=== PATIENT | male | born 1945 | race Caucasian/White ===

== ENCOUNTER 2017-01-21 14:42 | Emergency (ER) | payer MEDICARE ==
[2017-01-21] MEDS ORDERED: Sodium Chloride 0.9% 1000 ML 1,000 ML ONE (15:39)
[2017-01-21] MEDS ORDERED: Zofran 4 MG/2 ML VIAL IV ONE (15:41)
[2017-01-21 15:44] LABS: Mean Cell Volume 88.9 fl (78-100); Mean Corpuscular Hemoglobin 30.4 pg (26-32); Mean Platelet Volume 11.7 fl (6-9.5); Platelet Count 208 K/mm3 (150-450); Red Blood Count 4.67 M/mm3 (4.1-5.6); Red Cell Distribution Width 13.7 % (11.5-14.0); White Blood Count 6.5 K/mm3 (4.0-10.5)
[2017-01-21] MEDS ORDERED: Sodium Chloride 0.9% 1000 ML 1,000 ML IV SCH (15:45)
[2017-01-21] MEDS ORDERED: Zofran 4 MG/2 ML VIAL ONE (15:45)
[2017-01-21 16:07] LABS: ALBUMIN 3.3 g/dL (3.4-5.0); ANION GAP 16.7 MEQ/L (5-15); BILIRUBIN,TOTAL 0.4 mg/dL (0.2-1.0); Carbon Dioxide 23.6 mEq/L (21-32); Potassium 3.3 mEq/L (3.5-5.1); Total Protein 7.9 gm/dL (6.4-8.2)
--- NOTE | 2017-01-21 16:10 | ERPHSYRPT ---
- History of Present Illness Time Seen by Provider: 01/21/17 15:33 Historian: patient, family (significant other) Patient Subjective Stated Complaint: pt states he seen in [facility] care on 01/20/17 and given an outpatient order for a stool sample. pt states he is not getting better. states he has had vomiting and diarrhea for the past 3 days. denies any vomiting today. Triage Nursing Assessment: pt pink, warm, dry. pt ambularted into ER without difficulty. pt afebrile. abdomen obese. tender all over. Physician History: CC: abdominal pain Hx: 72 y/o patient of Dr aTyla Malagon in [place]. He began having vomiting and diarrhea without blood on Friday (3 days). He had no vomiting yesterday. Continues to have severe diarrhea 6 times today. Feels general weakness. Has not checked sugars. He is diabetic. No fever or chills. He had stools culture sent yesterday which is pending. He had negative C dff. Timing/Duration: day(s) (3) Allergies/Adverse Reactions: No Known Drug Allergies Allergy (Unverified 01/21/17 15:03) Home Medications: Amlodipine Besylate 5 mg PO DAILY 01/21/17 [History] Aspirin 81 mg PO DAILY 01/21/17 [History] Budesonide/Formoterol Fumarate [Symbicort 160-4.5 Mcg Inhaler] 10.2 gm IH DAILY 01/21/17 [History] Carvedilol 25 mg PO BID 01/21/17 [History] Colestipol HCl [Colestid] 2 gm PO DAILY 01/21/17 [History] Dapagliflozin Propanediol [Farxiga] 5 mg PO DAILY 01/21/17 [History] Docusate Sodium [Stool Softener] 200 mg PO BID 01/21/17 [History] Fenofibrate,Micronized [Fenofibrate] 200 mg PO DAILY 01/21/17 [History] Ferrous Sulfate 325 mg [Feosol 325 mg] 325 mg PO DAILY 01/21/17 [History] Finasteride 5 mg [Proscar 5 MG] 5 mg PO DAILY 01/21/17 [History] Folic Acid 1 mg PO DAILY 01/21/17 [History] Furosemide 40 mg [Lasix 40 MG] 40 mg PO DAILY 01/21/17 [History] Glucosamine/D3/Boswellia Meagan [Osteo Bi-Flex Tablet] 1 each PO DAILY 01/21/17 [ History] Insulin Glargine [Lantus Insulin] 40 unit SQ DAILY 01/21/17 [History] Insulin Glargine,Hum.rec.anlog [Toujeo Solostar] 300 unit SQ DAILY 01/21/17 [ History] Insulin Lispro [Humalog Kwikpen] 10 unit SQ BID 01/21/17 [History] Isosorbide Mononitrate 60 mg [Imdur 60MG] 60 mg PO DAILY 01/21/17 [History] Lactobacillus Acidophilus [Acidophilus Probiotic] 0.5 mg PO DAILY 01/21/17 [ History] Losartan Potassium 100 mg PO DAILY 01/21/17 [History] Magnesium 200 mg PO HS 01/21/17 [History] Meloxicam 15 mg [Meloxicam 15 MG] 15 mg PO DAILY 01/21/17 [History] [place]-3 Fatty Acids/Fish Oil [Fish Oil 1,000 mg Capsule] 1,000 mg PO BID [History] Omeprazole 40 mg PO DAILY 01/21/17 [History] Probenecid 500 mg PO BID 01/21/17 [History] Psyllium Husk/Aspartame [Metamucil] 425 gm PO DAILY 01/21/17 [History] Ranolazine [Ranexa] 1,000 mg PO BID 01/21/17 [History] Rosuvastatin Calcium [Crestor] 40 mg PO DAILY 01/21/17 [History] Saxagliptin HCl/Metformin HCl [Kombiglyze Xr 2.5-1,000 mg Tab] 2 each PO DAILY 01/21/17 [History] Tamsulosin HCl 0.4 mg [Flomax 0.4 MG] 0.4 mg PO DAILY 01/21/17 [History] Hx Tetanus, Diphtheria Vaccination/Date Given: Yes (up to date) Hx Influenza Vaccination/Date Given: Yes Hx Pneumococcal Vaccination/Date Given: Yes Immunizations Up to Date: Yes - Review of Systems Constitutional: Malaise, Weakness, No Fever, No Chills Eyes: No Symptoms Ears, Nose, & Throat: No Symptoms Respiratory: No Symptoms Cardiac: No Chest Pain Abdominal/Gastrointestinal: Abdominal Pain, Nausea, Vomiting, Diarrhea Genitourinary Symptoms: No Dysuria Musculoskeletal: No Back Pain Skin: No Rash Neurological: No Headache All Other Systems: Reviewed and Negative - Past Medical History Pertinent Past Medical History: Yes Cardiac History: High Cholesterol, Hypertension Endocrine Medical History: Diabetes Type II Musculoskeletal History: Arthritis - Past Surgical History Past Surgical History: Yes Gastrointestinal: Cholecystectomy, Hernia Repair Musculoskeletal: Joint Replacement, Orthopedic Surgery - Social History Smoking Status: Former smoker Exposure to second hand smoke: No Drug Use: none Patient Lives Alone: No - Nursing Vital Signs Nursing Vital Signs: Initial Vital Signs Temperature 97.8 F 01/21/17 15:05 Pulse Rate 76 01/21/17 15:05 Respiratory Rate 18 01/21/17 15:05 Blood Pressure 140/71 01/21/17 15:05 O2 Sat by Pulse Oximetry 98 01/21/17 15:05 - Physical Exam General Appearance: alert, obese Eye Exam: PERRL/EOMI Ears, Nose, Throat Exam: dry mucous membranes Neck Exam: normal inspection, supple Respiratory Exam: normal breath sounds Cardiovascular Exam: regular rate/rhythm Gastrointestinal/Abdomen Exam: soft, tenderness (diffuse tenderness), No mass Male Genitalia Exam: normal genitalia Back Exam: normal inspection Extremity Exam: normal range of motion, pedal edema Neurologic Exam: alert, oriented x 3, cooperative, sensation nml, No motor deficits Skin Exam: warm, dry, No rash SpO2 Interpretation: normal SpO2: 100 Oxygen Delivery: Room Air - Course Nursing assessment & vital signs reviewed: Yes - CT Exams bad/pelvis CT Interpretation: Tele-radiologist Report (mild diffuse pericolonic stranding favoring colitis. Some underlyine diverticulosis/itis. apendicolith without appendicitis.) Ordered Tests: Active Orders 24 hr Category Date Time Status Clean Catch Urine Specimen STAT Care 01/21/17 15:33 Active IV Insertion STAT Care 01/21/17 15:41 Active ABDOMEN AND PELVIS W/0 CONTRAS [CT] Stat Exams 01/21/17 15:41 Completed CBC W DIFF Stat Lab 01/21/17 15:39 Completed CMP Stat Lab 01/21/17 15:39 Completed Lactic Acid Stat Lab 01/21/17 15:41 Completed Manual Differential NC Stat Lab 01/21/17 15:39 Completed UA W/RFX UR CULTURE Stat Lab 01/21/17 15:33 Ordered Medication Summary Generic Name Dose Route Start Last Admin Trade Name Elisha PRN Reason Stop Dose Admin Sodium Chloride 1,000 mls @ 500 mls/hr 01/21/17 15:45 01/21/17 15:40 Sodium Chloride 0.9% 1000 Ml IV 02/20/17 15:44 500 mls/hr .Q2H SEGUNDO Administration Discontinued Medications Generic Name Dose Route Start Last Admin Trade Name Elisha PRN Reason Stop Dose Admin Ondansetron HCl 4 mg 01/21/17 15:41 01/21/17 15:45 Zofran 4 Mg/2 Ml Vial IV 01/21/17 15:42 4 mg STAT ONE Administration Ondansetron HCl Confirm 01/21/17 15:45 Zofran 4 Mg/2 Ml Vial Administered 01/21/17 15:46 Dose 4 mg .ROUTE .STDead Inventory Management System-MED ONE Lab/Rad Data: Laboratory Result Diagrams 01/21/17 15:39 01/21/17 15:39 Laboratory Results 01/21/17 01/21/17 01/21/17 Range/Units 15:41 15:39 15:39 WBC 6.5 (4.0-10.5) K/mm3 RBC 4.67 (4.1-5.6) M/mm3 Hgb 14.2 (12.5-18.0) gm/dl Hct 41.5 L (42-50) % MCV 88.9 (78-100) fl MCH 30.4 (26-32) pg MCHC 34.2 (32-36) g/dl RDW 13.7 (11.5-14.0) % Plt Count 208 (150-450) K/mm3 MPV 11.7 H (6-9.5) fl Sodium 134 L (136-145) mEq/L Potassium 3.3 L (3.5-5.1) mEq/L Chloride 97 L (98-107) mEq/L Carbon Dioxide 23.6 (21-32) mEq/L Anion Gap 16.7 H (5-15) MEQ/L BUN 29 H (9-20) mg/dL Creatinine 1.95 H (0.55-1.30) mg/dl Estimated GFR 36 ML/MIN Glucose 212 H (70-110) MG/DL Lactic Acid 1.6 (0.4-2.0) Calcium 9.3 (8.5-10.1) mg/dL Total Bilirubin 0.40 (0.2-1.0) mg/dL AST 32 (15-37) U/L ALT 23 (12-78) U/L Alkaline Phosphatase 45 L (46-116) U/L Serum Total Protein 7.9 (6.4-8.2) gm/dL Albumin 3.3 L (3.4-5.0) g/dL - Progress Progress Note: 01/21/17 16:51 Stool cx pending. Pt was given IVF. Offered admission for IVF and abtx but he chose to go home. Will release with bactrim, flagyl, and zofran ODT. Counseled pt/family regarding: lab results, diagnosis, need for follow-up, rad results - Departure Time of Disposition: 16:51 Departure Disposition: Home Clinical Impression: Diarrhea, Colitis, Diverticulitis Condition: Stable Critical Care Time: No Referrals: TAYLA MALAGON MD [Primary Care Provider] - Instructions: Diverticulitis, Diarrhea and Traveler's Diarrhea -- Adult Additional Instructions: Rx bactrim. Rx flagyl. Rx zofran ODT. Sip fluids, bland diet. Prescriptions: Ondansetron [Zofran Odt] 4 mg PO Q6HPRN PRN #10 tab.rapdis PRN Reason: Nausea/Vomiting Metronidazole 500 mg [Flagyl 500 MG] 500 mg PO BID #20 tablet Smz/Tmp Ds Tablet [Bactrim Ds Tablet] 1 udtab PO BID #20 tablet
--- NOTE | 2017-01-21 16:28 | XRAY ---
Indication: Lower abdominal pain. Vomiting and diarrhea. Multiple contiguous axial images obtained through the abdomen and pelvis without contrast as ordered. Comparison: None Lung bases demonstrates minimal fibrosis/scarring. No infiltrate, consolidation, or effusion. The heart is not enlarged. Noncontrasted stomach and bowel loops appear nonobstructed. There is mild diffuse or colonic stranding greatest in the descending and sigmoid colon favoring colitis. Mild scattered descending and sigmoid diverticulosis/diverticulitis. No free fluid/air. Tiny appendicolith without features for acute appendicitis. Nonobstructing punctate right renal calculus and 1 cm left upper pole exophytic cyst. Previous cholecystectomy. Remaining liver, pancreas, spleen, adrenal glands, kidneys, ureters, and bladder appear unremarkable for noncontrast exam. Moderate/heavy aortoiliac calcifications including great branches. Ectatic distal abdominal aorta measuring 2.8 cm in diameter. Osseous structures intact with moderate/advanced degenerative changes throughout the spine. Bilateral L5 spondylolysis without spondylolisthesis. Impression: 1. Mild diffuse pericolonic stranding favoring colitis. Great extent in the descending and sigmoid colon with underlying diverticulosis/diverticulitis. No free fluid or evidence for perforation. 2. Appendicolith without appendicitis. 3. Nonobstructing right renal micro-calculus, left renal cyst, and ectatic distal abdominal aorta. 4. Multilevel spinal degenerative spondylosis. Bilateral L5 spondylolysis without spondylolisthesis. CTDI 34.67
[2017-01-21 17:04] VITALS: O2SAT 94
[2017-01-21 17:34] VITALS: BP 138/59; PULSE 75
[2017-01-21 17:50] LABS: ATYPICAL LYMPHS 5 %; BAND 18 % (0.0-2.0); Platelet Estimate NORMAL (NORMAL); Total Cells Counted 100
== END 2017-01-21 17:32 | disposition home or self-care (01) ==
LOC: ED 14:42
DX: R19.7 Diarrhea, unspecified (principal); K52.9 Noninfective gastroenteritis and colitis, unspecified; K57.92 Diverticulitis of intestine, part unspecified, without perforation or abscess without bleeding; Z79.899 Other long term (current) drug therapy; Z79.4 Long term (current) use of insulin; R11.2 Nausea with vomiting, unspecified; R10.9 Unspecified abdominal pain
CPT/HCPCS: 36000; 36415; 74176; 80053; 83605; 85025; 87177; 87209; 96360; 96361; 96374; 99284; J2405

== ENCOUNTER 2017-07-29 15:42 | Emergency (ER) | payer MEDICARE ==
[2017-07-29 16:07] VITALS: O2SAT 96
[2017-07-29] MEDS ORDERED: Hydromorphone 1 mg/ml Ampule IV ONE (16:33)
--- NOTE | 2017-07-29 16:39 | ERPHSYRPT ---
- History of Present Illness Time Seen by Provider: 07/29/17 16:26 Source: patient Patient Subjective Stated Complaint: pt co pain to left hip area,after a fall 3 weeks ago after slipping on wet leafs. was seen a clinic and given a steriod shot with no relief Triage Nursing Assessment: pt walked in with cane. alert, resp easy,skin w/d/p Physician History: CC: fall Hx: 72 y/o patient with a [place] doctor. Hx of DM and multiple medical problems. He fell three weeks ago. 2 weeks ago he developed left hip and left posterior pelvis pain. He went to [facility] and had a steroid shot. The pain continues. Primary doctor office told him to come to ER today. He can walk with pain. Useing a cane. No N/T/W. uses norco regularly for pain. Severity: moderate Allergies/Adverse Reactions: No Known Drug Allergies Allergy (Verified 07/29/17 16:08) Home Medications: Amlodipine Besylate 5 mg PO DAILY 01/21/17 [History] Aspirin 81 mg PO DAILY 01/21/17 [History] Budesonide/Formoterol Fumarate [Symbicort 160-4.5 Mcg Inhaler] 10.2 gm IH DAILY 01/21/17 [History] Carvedilol 25 mg PO BID 01/21/17 [History] Colestipol HCl [Colestid] 2 gm PO DAILY 01/21/17 [History] Dapagliflozin Propanediol [Farxiga] 5 mg PO DAILY 01/21/17 [History] Docusate Sodium [Stool Softener] 200 mg PO BID 01/21/17 [History] Fenofibrate,Micronized [Fenofibrate] 200 mg PO DAILY 01/21/17 [History] Ferrous Sulfate 325 mg [Feosol 325 mg] 325 mg PO DAILY 01/21/17 [History] Finasteride 5 mg [Proscar 5 MG] 5 mg PO DAILY 01/21/17 [History] Folic Acid 1 mg PO DAILY 01/21/17 [History] Furosemide 40 mg [Lasix 40 MG] 40 mg PO DAILY 01/21/17 [History] Glucosamine/D3/Boswellia Meagan [Osteo Bi-Flex Tablet] 1 each PO DAILY 01/21/17 [ History] Insulin Glargine [Lantus Insulin] 40 unit SQ DAILY 01/21/17 [History] Insulin Lispro [Humalog Kwikpen] 10 unit SQ BID 01/21/17 [History] Isosorbide Mononitrate 60 mg [Imdur 60MG] 60 mg PO DAILY 01/21/17 [History] Lactobacillus Acidophilus [Acidophilus Probiotic] 0.5 mg PO DAILY 01/21/17 [ History] Losartan Potassium 100 mg PO DAILY 01/21/17 [History] Magnesium 200 mg PO HS 01/21/17 [History] Meloxicam 15 mg [Meloxicam 15 MG] 15 mg PO DAILY 01/21/17 [History] [place]-3 Fatty Acids/Fish Oil [Fish Oil 1,000 mg Capsule] 1,000 mg PO BID [History] Omeprazole 40 mg PO DAILY 01/21/17 [History] Probenecid 500 mg PO BID 01/21/17 [History] Psyllium Husk/Aspartame [Metamucil] 425 gm PO DAILY 01/21/17 [History] Ranolazine [Ranexa] 1,000 mg PO BID 01/21/17 [History] Rosuvastatin Calcium [Crestor] 40 mg PO DAILY 01/21/17 [History] Saxagliptin HCl/Metformin HCl [Kombiglyze Xr 2.5-1,000 mg Tab] 2 each PO DAILY 01/21/17 [History] Tamsulosin HCl 0.4 mg [Flomax 0.4 MG] 0.4 mg PO DAILY 01/21/17 [History] Hx Tetanus, Diphtheria Vaccination/Date Given: Yes (up to date) Hx Influenza Vaccination/Date Given: Yes Hx Pneumococcal Vaccination/Date Given: Yes Immunizations Up to Date: Yes - Review of Systems Constitutional: No Fever, No Chills Cardiac: No Chest Pain, No Syncope Abdominal/Gastrointestinal: No Abdominal Pain, No Nausea, No Vomiting Genitourinary Symptoms: No Dysuria Musculoskeletal: Fall, Joint Pain (left posterior pelvis), No Neck Pain Neurological: No Focal Weakness, No Parasthesia All Other Systems: Reviewed and Negative - Past Medical History Pertinent Past Medical History: Yes Cardiac History: Coronary Artery Disease, High Cholesterol, Hypertension, Myocardial Infarction ([place]) Endocrine Medical History: Diabetes Type II Musculoskeletal History: Arthritis - Past Surgical History Past Surgical History: Yes Cardiac: Cardiac Catheterization Gastrointestinal: Cholecystectomy, Hernia Repair Musculoskeletal: Joint Replacement, Orthopedic Surgery Other Surgical History: knee replaced bilat. - Social History Smoking Status: Former smoker Exposure to second hand smoke: Yes Drug Use: none Patient Lives Alone: No - Nursing Vital Signs Nursing Vital Signs: Initial Vital Signs Temperature 98.0 F 07/29/17 16:00 Pulse Rate 82 07/29/17 16:00 Respiratory Rate 16 07/29/17 16:00 Blood Pressure 153/82 07/29/17 16:00 O2 Sat by Pulse Oximetry 96 07/29/17 16:00 Pain Scale Pain Intensity 9 - Physical Exam General Appearance: alert Eye Exam: PERRL/EOMI Ears, Nose, Throat Exam: moist mucous membranes Neck Exam: normal inspection, non-tender, supple, No midline tenderness Respiratory Exam: normal breath sounds Cardiovascular Exam: regular rate/rhythm Male Genitalia Exam: normal genitalia Extremity Exam: other (brauny stasis edema both legs. Tender left posterior hip and sacral area. No abscess or bruising.) Neurologic Exam: alert, oriented x 3, cooperative, sensation nml, No motor deficits Skin Exam: warm, dry, No rash SpO2 Interpretation: normal SpO2: 96 Oxygen Delivery: Room Air - Course Nursing assessment & vital signs reviewed: Yes Ordered Tests: Active Orders 24 hr Category Date Time Status Clean Catch Urine Specimen STAT Care 07/29/17 16:33 Active IV Insertion STAT Care 07/29/17 16:33 Active PELVIS WITHOUT CONTRAST [CT] Stat Exams 07/29/17 16:33 Taken CBC W DIFF Stat Lab 07/29/17 16:58 Completed CMP Stat Lab 07/29/17 16:58 Completed UA W/ MICROSCOPIC Stat Lab 07/29/17 17:00 Completed Medication Summary Discontinued Medications Generic Name Dose Route Start Last Admin Trade Name Freq PRN Reason Stop Dose Admin Hydromorphone HCl 0.5 mg 07/29/17 16:33 07/29/17 17:24 Hydromorphone 1 Mg/Ml Ampule IV 07/29/17 16:34 1 mg STAT ONE Administration Hydromorphone HCl Confirm 07/29/17 17:06 Hydromorphone 1 Mg/Ml Ampule Administered 07/29/17 17:07 Dose 1 mg .ROUTE .STK-MED ONE Lab/Rad Data: Laboratory Result Diagrams 07/29/17 16:58 07/29/17 16:58 Laboratory Results 07/29/17 07/29/17 07/29/17 Range/Units 17:00 16:58 16:58 WBC 6.9 (4.0-10.5) K/mm3 RBC 4.54 (4.1-5.6) M/mm3 Hgb 13.7 (12.5-18.0) gm/dl Hct 42.1 (42-50) % MCV 92.7 (78-100) fl MCH 30.2 (26-32) pg MCHC 32.5 (32-36) g/dl RDW 13.1 (11.5-14.0) % Plt Count 169 (150-450) K/mm3 MPV 10.9 H (6-9.5) fl Gran % 59.3 (36.0-66.0) % Lymphocytes % 26.3 (24.0-44.0) % Monocytes % 12.7 H (0.0-12.0) % Eosinophils % 1.3 (0.00-5.0) % Basophils % 0.4 (0.0-0.4) % Basophils # 0.03 (0-0.4) Sodium 140 (136-145) mEq/L Potassium 4.0 (3.5-5.1) mEq/L Chloride 102 (98-107) mEq/L Carbon Dioxide 29.0 (21-32) mEq/L Anion Gap 12.6 (5-15) MEQ/L BUN 22 H (9-20) mg/dL Creatinine 1.18 (0.55-1.30) mg/dl Estimated GFR > 60 ML/MIN Glucose 149 H (70-110) MG/DL Calcium 9.2 (8.5-10.1) mg/dL Total Bilirubin 0.30 (0.2-1.0) mg/dL AST 37 (15-37) U/L ALT 28 (12-78) U/L Alkaline Phosphatase 49 (46-116) U/L Serum Total Protein 7.8 (6.4-8.2) gm/dL Albumin 4.0 (3.4-5.0) g/dL Ur Collection Type VOID Urine Color YELLOW (YELLOW) Urine Appearance CLEAR (CLEAR) Urine pH 5.0 (5-6) Ur Specific [place] 1.010 (1.005-1.025) Urine Protein TRACE (Negative) Urine Ketones NEGATIVE (NEGATIVE) Urine Blood NEGATIVE (0-5) Titus/ul Urine Nitrite NEGATIVE (NEGATIVE) Urine Bilirubin NEGATIVE (NEGATIVE) Urine Urobilinogen NORMAL (0-1) mg/dL Ur Leukocyte Esterase NEGATIVE (NEGATIVE) Ur Epithelial Cells RARE (FEW) /HPF Urine Bacteria RARE (NEGATIVE) /HPF Urine Culture Reflexed NO (NO) Urine Glucose 1000 (NEGATIVE) mg/dL Specimen Received 07/29/17 1700 - Progress Progress Note: 07/29/17 17:53 abd/pelvis: [email or web address] 5:27 PM 07/29/2017: Compared to 01/21/17. Negative fx. Stable lower lumbar DDD & B/L L5 spondylolysis w/o spondylolisthesis. Stable sigmoid diverticulosis, 2.8 cm ectatic aorta, & fatty R inguinal hernia. No new/acute findings. 07/29/17 18:00 Pain some better. He has biofreeze and norco to use at home. ADvised he contact Dr Popeye Malagon primary care tomorrow to arrange follow up and consider PT. Counseled pt/family regarding: lab results, diagnosis, need for follow-up, rad results - Departure Time of Disposition: 18:00 Departure Disposition: Home Clinical Impression: Left hip pain Condition: Stable Critical Care Time: No Referrals: POPEYE MALAGON MD [Primary Care Provider] - Instructions: Hip Pain (DC) Additional Instructions: Use your norco as directed for pain- no extra. Contact Dr Malagon tomorrow for recheck and to consider phycical therapy. No driving or operating machinery.
[2017-07-29 17:06] LABS: BASOPHIL % 0.4 % (0.0-0.4); Basophil (Absolute #) 0.03 (0-0.4); Eosinophil % 1.3 % (0.00-5.0); Eosinophil (Absolute #) 0.09 (0-0.5); Granulocyte Absolute (ANC) 4.11 (1.4-6.9); Granulocytes % 59.3 % (36.0-66.0); Hematocrit 42.1 % (42-50); Hemoglobin 13.7 gm/dl (12.5-18.0); Lymphocyte (Absolute #) 1.82 (1.0-4.6); Lymphocytes % 26.3 % (24.0-44.0); Mean Cell Volume 92.7 fl (78-100); Mean Corpuscular Hemoglobin 30.2 pg (26-32); Mean Corpuscular Hgb Concent. 32.5 g/dl (32-36); Mean Platelet Volume 10.9 fl (6-9.5); Monocyte (Absolute #) 0.88 (0.0-1.3); Monocytes % 12.7 % (0.0-12.0); Platelet Count 169 K/mm3 (150-450); Red Blood Count 4.54 M/mm3 (4.1-5.6); Red Cell Distribution Width 13.1 % (11.5-14.0); White Blood Count 6.9 K/mm3 (4.0-10.5)
[2017-07-29] MEDS ORDERED: Hydromorphone 1 mg/ml Ampule ONE (17:06)
[2017-07-29 17:23] LABS: Appearance CLEAR (CLEAR); Bilirubin NEGATIVE (NEGATIVE); Blood NEGATIVE Ery/ul (0-5); Glucose 1000 mg/dL (NEGATIVE); Ketones NEGATIVE (NEGATIVE); Leukocyte Esterase NEGATIVE (NEGATIVE); Nitrite NEGATIVE (NEGATIVE); Protein,Urine Dip TRACE (Negative); Urobilinogen NORMAL mg/dL (0-1)
[2017-07-29 17:24] LABS: Bacteria RARE /HPF (NEGATIVE); Epithelial Cells RARE /HPF (FEW)
[2017-07-29 17:30] LABS: ALKALINE PHOSPHATASE 49 U/L (46-116); ANION GAP 12.6 MEQ/L (5-15); BLOOD UREA NITROGEN 22 mg/dL (9-20); CHLORIDE 102 mEq/L (98-107); Calcium 9.2 mg/dL (8.5-10.1); Creatinine 1 1.18 mg/dl (0.55-1.30); EST GLOMERULAR FILTRATION RATE > 60 ML/MIN; Glucose 149 MG/DL (70-110); SGOT/AST 37 U/L (15-37); SGPT/ALT 28 U/L (12-78); SODIUM 140 mEq/L (136-145); Total Protein 7.8 gm/dL (6.4-8.2)
[2017-07-29 18:01] VITALS: BP 133/62; PULSE 72
--- NOTE | 2017-07-30 09:18 | XRAY ---
Indication: Sacral and left buttock/hip pain following fall 3 weeks ago. Multiple contiguous images obtained through the pelvis with special attention to the osseous structures. Sagittal and coronal reformatted images obtained. Comparison: January 21, 2017. There remains advanced degenerative changes of the visualized lower lumbar spine and bilateral L5 spondylolysis without spondylolisthesis. New bilateral L4 pedicle fractures without subluxation. No other acute fracture, dislocation, or suspicious bony lesions. Stable sigmoid diverticulosis, 2.8 cm ectatic distal abdominal aorta, tiny appendicolith without appendicitis, small fatty umbilical hernia, small fatty right inguinal hernia, and extensive scattered arteriosclerotic calcifications. Impression: 1. New nondisplaced bilateral L4 pedicle fractures without subluxation. 2. Stable advanced degenerative changes of the visualized lower lumbar spine and bilateral L5 spondylolysis without spondylolisthesis. 3. Stable sigmoid diverticulosis, ectatic aorta, appendicolith, fatty umbilical hernia, and fatty right inguinal hernia. Comment: L4 pedicle fractures not reported on preliminary interpretation. I gave telephone report to Dr. Lozano at 0913 hours on July 30, 2017. CTDI 60.81
== END 2017-07-29 18:10 | disposition home or self-care (01) ==
LOC: ED 15:42
DX: M25.552 Pain in left hip (principal); M51.36 Other intervertebral disc degeneration, lumbar region; M47.896 Other spondylosis, lumbar region; I25.10 Atherosclerotic heart disease of native coronary artery without angina pectoris; E78.00 Pure hypercholesterolemia, unspecified; I10 Essential (primary) hypertension; I25.2 Old myocardial infarction; E11.9 Type 2 diabetes mellitus without complications; Z79.4 Long term (current) use of insulin; M19.90 Unspecified osteoarthritis, unspecified site; Z79.899 Other long term (current) drug therapy
CPT/HCPCS: 36000; 36415; 72192; 80053; 81000; 85025; 96374; 99284; J1170

== ENCOUNTER 2017-10-31 16:39 | Emergency (ER) | payer MEDICARE ==
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
[2017-10-31 19:22] VITALS: BP 151/91; PULSE 67; O2SAT 98
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
== END 2017-10-31 19:02 | disposition home or self-care (01) ==
LOC: ED 16:39
DX: S16.1XXA Strain of muscle, fascia and tendon at neck level, initial encounter (principal); V53.5XXA Driver of pick-up truck or van injured in collision with car, pick-up truck or van in traffic accident, initial encounter; M54.2 Cervicalgia; R42 Dizziness and giddiness; Z79.899 Other long term (current) drug therapy; E11.9 Type 2 diabetes mellitus without complications; E78.00 Pure hypercholesterolemia, unspecified; I10 Essential (primary) hypertension; I25.2 Old myocardial infarction
CPT/HCPCS: 72125; 99283; L0120

== ENCOUNTER 2019-07-29 16:12 | Observation (INO) | payer MEDICARE ==
[2019-07-29] MEDS ORDERED: Furosemide 100mg/10 ml Vial IV ONE (16:57)
[2019-07-29] MEDS ORDERED: BABY ASPIRIN 81 MG CHEW PO ONE (16:57)
[2019-07-29 17:42] LABS: BASOPHIL % 0.4 % (0.0-0.4); Basophil (Absolute #) 0.02 (0-0.4); Eosinophil % 1.1 % (0.00-5.0); Eosinophil (Absolute #) 0.06 (0-0.5); Hematocrit 41.2 % (42-50); Hemoglobin 13.2 gm/dl (12.5-18.0); Lymphocyte (Absolute #) 1.56 (1.0-4.6); Lymphocytes % 29.5 % (24.0-44.0); Mean Cell Volume 97.2 fl (78-100); Mean Corpuscular Hemoglobin 31.1 pg (26-32); Mean Platelet Volume 11.5 fl (7.5-11.0); Monocyte (Absolute #) 0.94 (0.0-1.3); Monocytes % 17.8 % (0.0-12.0); Neutrophil % 51.2 % (36.0-66.0); Platelet Count 128 K/mm3 (150-450); Red Blood Count 4.24 M/mm3 (4.1-5.6); White Blood Count 5.3 K/mm3 (4.0-10.5)
[2019-07-29 17:50] LABS: INR 3.7 (0.8-3.0)
[2019-07-29] MEDS ORDERED: Furosemide 100mg/10 ml Vial ONE (17:53)
[2019-07-29 18:02] LABS: ALBUMIN 3.8 g/dL (3.5-5.0); ANION GAP 13.2 MEQ/L (5-15); BILIRUBIN,TOTAL 0.3 mg/dL (0.2-1.3); Creatinine 1 1.43 mg/dL (0.66-1.25); Potassium 4.5 mmol/L (3.5-5.1); Total Protein 7.4 g/dL (6.3-8.2)
[2019-07-29] MEDS ORDERED: BABY ASPIRIN 81 MG CHEW ONE (18:25)
--- NOTE | 2019-07-29 18:31 | ERPHSYRPT ---
- History of Present Illness Time Seen by Provider: 07/29/19 16:14 Source: patient Exam Limitations: no limitations Patient Subjective Stated Complaint: states has had abd pain and fullness with shortness of breath for one week. Triage Nursing Assessment: ambulated to room per self. slight shortness of breath noted. abd very large, firm. normal bowel sounds. breath sounds diminished. Physician History: Patient is here with extreme SOB with any walking. States he feels much worse when laying down. No known h/o CHF. Does have CAD and follows with a breakdown person. Location: chest Quality: SOB Radiation: none Severity: moderate Duration: 2 weeks Timing: gradual Modifying factors/associated signs and symptoms: none tried has not see cardiology Allergies/Adverse Reactions: No Known Drug Allergies Allergy (Verified 07/29/19 16:39) Home Medications: Amlodipine Besylate 5 mg PO DAILY 01/21/17 [History] Aspirin 81 mg PO DAILY 01/21/17 [History] Budesonide/Formoterol Fumarate [Symbicort 160-4.5 Mcg Inhaler] 10.2 gm IH DAILY 01/21/17 [History] Colestipol HCl [Colestid] 2 gm PO DAILY 01/21/17 [History] Dapagliflozin Propanediol [Farxiga] 5 mg PO DAILY 01/21/17 [History] Docusate Sodium [Stool Softener] 200 mg PO BID 01/21/17 [History] Fenofibrate,Micronized [Fenofibrate] 200 mg PO DAILY 01/21/17 [History] Ferrous Sulfate 325 mg [Feosol 325 mg] 325 mg PO DAILY 01/21/17 [History] Finasteride 5 mg [Proscar 5 MG] 5 mg PO DAILY 01/21/17 [History] Folic Acid 1 mg PO DAILY 01/21/17 [History] Furosemide 40 mg [Lasix 40 MG] 40 mg PO DAILY 01/21/17 [History] Glucosamine/D3/Boswellia Meagan [Osteo Bi-Flex Tablet] 1 each PO DAILY 01/21/17 [ History] Insulin Glargine [Lantus Insulin] 40 unit SQ DAILY 01/21/17 [History] Insulin Lispro [Humalog Kwikpen] 10 unit SQ BID 01/21/17 [History] Isosorbide Mononitrate 60 mg [Imdur 60MG] 60 mg PO DAILY 01/21/17 [History] Lactobacillus Acidophilus [Acidophilus Probiotic] 0.5 mg PO DAILY 01/21/17 [ History] Losartan Potassium 100 mg PO DAILY 01/21/17 [History] Magnesium 200 mg PO HS 01/21/17 [History] Meloxicam 15 mg [Meloxicam 15 MG] 15 mg PO DAILY 01/21/17 [History] [place]-3 Fatty Acids/Fish Oil [Fish Oil 1,000 mg Capsule] 1,000 mg PO BID [History] Omeprazole 40 mg PO DAILY 01/21/17 [History] Probenecid 500 mg PO BID 01/21/17 [History] Psyllium Husk/Aspartame [Metamucil] 425 gm PO DAILY 01/21/17 [History] Ranolazine [Ranexa] 1,000 mg PO BID 01/21/17 [History] Rosuvastatin Calcium [Crestor] 40 mg PO DAILY 01/21/17 [History] Saxagliptin HCl/Metformin HCl [Kombiglyze Xr 2.5-1,000 mg Tab] 2 each PO DAILY 01/21/17 [History] Tamsulosin HCl 0.4 mg [Flomax 0.4 MG] 0.4 mg PO DAILY 01/21/17 [History] carvediloL [Carvedilol] 25 mg PO BID 01/21/17 [History] Hx Tetanus, Diphtheria Vaccination/Date Given: No Hx Influenza Vaccination/Date Given: Yes Hx Pneumococcal Vaccination/Date Given: Yes - Review of Systems Constitutional: No Fever, No Chills Eyes: No Symptoms Ears, Nose, & Throat: No Symptoms Respiratory: Dyspnea, No Cough Cardiac: No Chest Pain, No Edema, No Syncope Abdominal/Gastrointestinal: No Abdominal Pain, No Nausea, No Vomiting, No Diarrhea Genitourinary Symptoms: No Dysuria Musculoskeletal: No Back Pain, No Neck Pain Skin: No Rash Neurological: No Dizziness, No Focal Weakness, No Sensory Changes Psychological: No Symptoms Endocrine: No Symptoms All Other Systems: Reviewed and Negative - Past Medical History Pertinent Past Medical History: Yes Neurological History: No Pertinent History Cardiac History: Coronary Artery Disease, High Cholesterol, Hypertension, Myocardial Infarction ([place]), Other Respiratory History: Bronchitis, Pneumonia Endocrine Medical History: Diabetes Type II Musculoskeletal History: Osteoarthritis Other Medical History: HX OF CAD AND 2 PR BUT TRIED TO DO STENT BUT UNABLE, BLOOD CLOT RIGHT LEG, GOUT, GERD. PATIENT ALSO REPORTS RECENT HX OF BLISTER RIGHT MEDIAL ANKLE TREATED AT [facility] - STILL SMALL OPENING WHICH WESADIA. WEARS CIRCAID ON RIGHT LOWER LEG. SX HX: RIGHT TKR 8 YEARS AGO, LEFT TKR 10 YEARS, CHOLECYSTECTOMY, INGUINAL HERNIA REPAIR, BILATERAL ROTATOR CUFF REPAIR (BEFORE TOTAL KNEES WERE DONE) - Past Surgical History Past Surgical History: Yes Cardiac: Cardiac Catheterization Gastrointestinal: Cholecystectomy, Hernia Repair Musculoskeletal: Joint Replacement, Orthopedic Surgery Other Surgical History: knee replaced bilat. bilat surgery on shoulder - Social History Smoking Status: Former smoker Exposure to second hand smoke: No Drug Use: none Patient Lives Alone: No - Nursing Vital Signs Nursing Vital Signs: Initial Vital Signs Temperature 97.4 F 07/29/19 16:29 Pulse Rate 62 07/29/19 16:29 Respiratory Rate 24 07/29/19 16:29 Blood Pressure 155/75 07/29/19 16:29 O2 Sat by Pulse Oximetry 96 07/29/19 16:29 Pain Scale Pain Intensity 0 - Physical Exam General Appearance: no apparent distress, alert Eye Exam: PERRL/EOMI Neck Exam: normal inspection, supple Respiratory Exam: crackles/rales (crackles throughout) Cardiovascular/Chest Exam: normal heart sounds, regular rate/rhythm, edema (1+ peripheral edema ) Abdominal/Gastrointestinal Exam: soft, other (distended ), No tenderness, No distention, No mass Extremity Exam: non-tender, normal range of motion, normal inspection, no calf tenderness, no pedal edema Neurologic Exam: alert, oriented x 3, cooperative, medical technical writer II-XII nml as tested, sensation nml, No motor deficits Skin Exam: normal color, warm, No dry SpO2 Interpretation: normal SpO2: 96 - Course Nursing assessment & vital signs reviewed: Yes Ordered Tests: Active Orders 24 hr Category Date Time Status Admit as Inpatient ROUTINE Care 07/29/19 21:08 Active Field Aide STAT Care 07/29/19 16:58 Completed Code Status Order ROUTINE Care 07/29/19 21:08 Active EKG-ER Only STAT Care 07/29/19 16:57 Completed [place] [Catheter-[place]] STAT Care 07/29/19 21:08 Active IV Care Q6H Care 07/29/19 21:08 Active IV Insertion STAT Care 07/29/19 16:57 Completed Implement CHF Pathway ROUTINE Care 07/29/19 21:08 Active Telemetry q6h Care 07/29/19 21:08 Active Weight,Daily 0600 Care 07/29/19 21:08 Active Consult Cardiology ROUTINE Cons 07/29/19 21:08 Active Low Sodium Diet 07/29/19 Breakfast Active ABDOMEN AND PELVIS W CONTRAST [CT] Stat Exams 07/29/19 18:15 Taken CHEST 2 VIEWS (PA AND LAT) IN AM Exams 07/30/19 06:00 Ordered CHEST 2 VIEWS (PA AND LAT) Stat Exams 07/29/19 16:58 Taken BMP AM.LAB Lab 07/30/19 04:00 Ordered CBC AM.LAB Lab 07/30/19 04:00 Ordered CBC W DIFF Stat Lab 07/29/19 17:30 Completed CMP Stat Lab 07/29/19 17:30 Completed LIPASE Stat Lab 07/29/19 17:30 Completed Lactic Acid Stat Lab 07/29/19 17:53 Completed NT PRO BNP AM.LAB Lab 07/30/19 04:00 Ordered NT PRO BNP Stat Lab 07/29/19 17:30 Completed PROTIME WITH INR Stat Lab 07/29/19 17:30 Completed TROPONIN Q3H Lab 07/29/19 17:30 Completed TROPONIN Q3H Lab 07/29/19 20:31 Completed TROPONIN Q3H Lab 07/29/19 23:00 Ordered TROPONIN Q3H Lab 07/30/19 02:00 Ordered TROPONIN Q3H Lab 07/30/19 05:00 Ordered UA W/RFX UR CULTURE Stat Lab 07/29/19 18:17 Completed Oxygen NASAL CANNULA 2 lpm RT 07/29/19 21:08 Active Pulse Oximetry OVERNIGHT RT 07/29/19 21:08 Active Transfer Order Routine Transfer 07/29/19 Completed Medication Summary Generic Name Dose Route Start Last Admin Trade Name Freq PRN Reason Stop Dose Admin Furosemide 40 mg 07/30/19 10:00 Lasix 40 Mg/4 Ml IV 08/29/19 09:59 DAILY SEGUNDO Discontinued Medications Generic Name Dose Route Start Last Admin Trade Name Freq PRN Reason Stop Dose Admin Aspirin 324 mg 07/29/19 16:57 07/29/19 18:39 Baby Aspirin 81 Mg Chew PO 07/29/19 16:58 324 mg STAT ONE Administration Aspirin Confirm 07/29/19 18:25 Baby Aspirin 81 Mg Chew Administered 07/29/19 18:26 Dose 81 mg .ROUTE .STK-MED ONE Furosemide 80 mg 07/29/19 16:57 07/29/19 18:23 Furosemide 100mg/10 Ml Vial IV 07/29/19 16:58 80 mg STAT ONE Administration Furosemide Confirm 07/29/19 17:53 Furosemide 100mg/10 Ml Vial Administered 07/29/19 17:54 Dose 100 mg .ROUTE .STK-MED ONE Ceftriaxone Sodium/Dextrose 1 g in 50 mls @ 100 mls/hr 07/29/19 20:44 21:38 Rocephin 1 Gm-D5w 50 Ml Bag IV 07/29/19 21:13 100 mls/hr STAT STA Administration Lab/Rad Data: Laboratory Result Diagrams 07/29/19 17:30 07/29/19 17:30 Laboratory Results 07/29/19 07/29/19 07/29/19 Range/Units 20:31 18:17 17:53 WBC (4.0-10.5) K/mm3 RBC (4.1-5.6) M/mm3 Hgb (12.5-18.0) gm/dl Hct (42-50) % MCV (78-100) fl MCH (26-32) pg MCHC (32-36) g/dl RDW (11.5-14.0) % Plt Count (150-450) K/mm3 MPV (7.5-11.0) fl Gran % (36.0-66.0) % Eos # (Auto) (0-0.5) Absolute Lymphs (auto) (1.0-4.6) Absolute Monos (auto) (0.0-1.3) Lymphocytes % (24.0-44.0) % Monocytes % (0.0-12.0) % Eosinophils % (0.00-5.0) % Basophils % (0.0-0.4) % Absolute Granulocytes (1.4-6.9) Basophils # (0-0.4) PT (8.83-12.87) SECONDS INR (0.8-3.0) Sodium (137-145) mmol/L Potassium (3.5-5.1) mmol/L Chloride (98-107) mmol/L Carbon Dioxide (22-30) mmol/L Anion Gap (5-15) MEQ/L BUN (9-20) mg/dL Creatinine (0.66-1.25) mg/dL Estimated GFR ML/MIN Glucose (74-106) mg/dL Lactic Acid 1.4 (0.4-2.0) Calcium (8.4-10.2) mg/dL Total Bilirubin (0.2-1.3) mg/dL AST (17-59) U/L ALT (0-50) U/L Alkaline Phosphatase (38-126) U/L Troponin I 0.014 (0.000-0.034) ng/mL NT-Pro-B Natriuret Pep (0-900) pg/mL Serum Total Protein (6.3-8.2) g/dL Albumin (3.5-5.0) g/dL Lipase (23-300) U/L Urine Color YELLOW (YELLOW) Urine Appearance CLEAR (CLEAR) Urine pH 7.0 (5-6) Ur Specific [place] 1.005 (1.005-1.025) Urine Protein 30 (Negative) Urine Ketones NEGATIVE (NEGATIVE) Urine Blood NEGATIVE (0-5) [place]/ul Urine Nitrite NEGATIVE (NEGATIVE) Urine Bilirubin NEGATIVE (NEGATIVE) Urine Urobilinogen NEGATIVE (0-1) mg/dL Ur Leukocyte Esterase NEGATIVE (NEGATIVE) Urine WBC (Auto) NONE (0-5) /HPF Urine RBC (Auto) NONE (0-2) /HPF U Epithel Cells (Auto) NONE (FEW) /HPF Urine Bacteria (Auto) NONE (NEGATIVE) /HPF Urine Culture Reflexed NO (NO) Urine Glucose 150 (NEGATIVE) mg/dL 07/29/19 07/29/19 07/29/19 Range/Units 17:30 17:30 17:30 WBC (4.0-10.5) K/mm3 RBC (4.1-5.6) M/mm3 Hgb (12.5-18.0) gm/dl Hct (42-50) % MCV (78-100) fl MCH (26-32) pg MCHC (32-36) g/dl RDW (11.5-14.0) % Plt Count (150-450) K/mm3 MPV (7.5-11.0) fl Gran % (36.0-66.0) % Eos # (Auto) (0-0.5) Absolute Lymphs (auto) (1.0-4.6) Absolute Monos (auto) (0.0-1.3) Lymphocytes % (24.0-44.0) % Monocytes % (0.0-12.0) % Eosinophils % (0.00-5.0) % Basophils % (0.0-0.4) % Absolute Granulocytes (1.4-6.9) Basophils # (0-0.4) PT 43.0 H (8.83-12.87) SECONDS INR 3.70 H (0.8-3.0) Sodium 139 (137-145) mmol/L Potassium 4.5 (3.5-5.1) mmol/L Chloride 97 L (98-107) mmol/L Carbon Dioxide 33 H (22-30) mmol/L Anion Gap 13.2 (5-15) MEQ/L BUN 22 H (9-20) mg/dL Creatinine 1.43 H (0.66-1.25) mg/dL Estimated GFR 51.4 ML/MIN Glucose 74 (74-106) mg/dL Lactic Acid (0.4-2.0) Calcium 9.0 (8.4-10.2) mg/dL Total Bilirubin 0.30 (0.2-1.3) mg/dL AST 47 (17-59) U/L ALT 19 (0-50) U/L Alkaline Phosphatase 56 (38-126) U/L Troponin I 0.013 (0.000-0.034) ng/mL NT-Pro-B Natriuret Pep 1220 H (0-900) pg/mL Serum Total Protein 7.4 (6.3-8.2) g/dL Albumin 3.8 (3.5-5.0) g/dL Lipase 145 (23-300) U/L Urine Color (YELLOW) Urine Appearance (CLEAR) Urine pH (5-6) Ur Specific [place] (1.005-1.025) Urine Protein (Negative) Urine Ketones (NEGATIVE) Urine Blood (0-5) [place]/ul Urine Nitrite (NEGATIVE) Urine Bilirubin (NEGATIVE) Urine Urobilinogen (0-1) mg/dL Ur Leukocyte Esterase (NEGATIVE) Urine WBC (Auto) (0-5) /HPF Urine RBC (Auto) (0-2) /HPF U Epithel Cells (Auto) (FEW) /HPF Urine Bacteria (Auto) (NEGATIVE) /HPF Urine Culture Reflexed (NO) Urine Glucose (NEGATIVE) mg/dL 07/29/19 Range/Units 17:30 WBC 5.3 (4.0-10.5) K/mm3 RBC 4.24 (4.1-5.6) M/mm3 Hgb 13.2 (12.5-18.0) gm/dl Hct 41.2 L (42-50) % MCV 97.2 (78-100) fl MCH 31.1 (26-32) pg MCHC 32.0 (32-36) g/dl RDW 15.0 H (11.5-14.0) % Plt Count 128 L (150-450) K/mm3 MPV 11.5 H (7.5-11.0) fl Gran % 51.2 (36.0-66.0) % Eos # (Auto) 0.06 (0-0.5) Absolute Lymphs (auto) 1.56 (1.0-4.6) Absolute Monos (auto) 0.94 (0.0-1.3) Lymphocytes % 29.5 (24.0-44.0) % Monocytes % 17.8 H (0.0-12.0) % Eosinophils % 1.1 (0.00-5.0) % Basophils % 0.4 (0.0-0.4) % Absolute Granulocytes 2.70 (1.4-6.9) Basophils # 0.02 (0-0.4) PT (8.83-12.87) SECONDS INR (0.8-3.0) Sodium (137-145) mmol/L Potassium (3.5-5.1) mmol/L Chloride (98-107) mmol/L Carbon Dioxide (22-30) mmol/L Anion Gap (5-15) MEQ/L BUN (9-20) mg/dL Creatinine (0.66-1.25) mg/dL Estimated GFR ML/MIN Glucose (74-106) mg/dL Lactic Acid (0.4-2.0) Calcium (8.4-10.2) mg/dL Total Bilirubin (0.2-1.3) mg/dL AST (17-59) U/L ALT (0-50) U/L Alkaline Phosphatase (38-126) U/L Troponin I (0.000-0.034) ng/mL NT-Pro-B Natriuret Pep (0-900) pg/mL Serum Total Protein (6.3-8.2) g/dL Albumin (3.5-5.0) g/dL Lipase (23-300) U/L Urine Color (YELLOW) Urine Appearance (CLEAR) Urine pH (5-6) Ur Specific [place] (1.005-1.025) Urine Protein (Negative) Urine Ketones (NEGATIVE) Urine Blood (0-5) [place]itus/ul Urine Nitrite (NEGATIVE) Urine Bilirubin (NEGATIVE) Urine Urobilinogen (0-1) mg/dL Ur Leukocyte Esterase (NEGATIVE) Urine WBC (Auto) (0-5) /HPF Urine RBC (Auto) (0-2) /HPF U Epithel Cells (Auto) (FEW) /HPF Urine Bacteria (Auto) (NEGATIVE) /HPF Urine Culture Reflexed (NO) Urine Glucose (NEGATIVE) mg/dL - Progress Progress: improved, re-examined Air Movement: good Progress Note: 07/29/19 18:30 - We'll obtain basic labs, fluids, EKG, troponin, chest x-ray - EKG shows no ST changes - my read. See full read below. - O2 saturations consistently greater than 95% at rest. Patient becomes hypoxic when walking - CXR shows cardiomegly and CHF Patient given a dose of lasix in the ER. We will obtain a CT scan of his abdomen 07/29/19 21:44 Patient has new ascetics on CT scan. Most likely heart failure and fluid overload. I discussed with Dr. Lewis. He requested Mei richter admission with AM labs. Patient feels comfortable with plan and will be admitted. Blood Culture(s) Obtained: No Antibiotics given: No Discussed with : Konstantin Will see patient in: hospital (full admit) Counseled pt/family regarding: lab results, diagnosis, need for follow-up - Departure Departure Disposition: In-patient Admission Clinical Impression: Shortness of breath on exertion, SOB (shortness of breath) CHF exacerbation Qualifiers: Heart failure type: unspecified Qualified Code(s): I50.9 - Heart failure, unspecified Ascites Qualifiers: Ascites type: other type Qualified Code(s): R18.8 - Other ascites Condition: Stable Critical Care Time: No
[2019-07-29 18:45] LABS: Appearance CLEAR (CLEAR); Bilirubin NEGATIVE (NEGATIVE); Blood NEGATIVE Ery/ul (0-5); Glucose 150 mg/dL (NEGATIVE); Ketones NEGATIVE (NEGATIVE); Leukocyte Esterase NEGATIVE (NEGATIVE); Nitrite NEGATIVE (NEGATIVE); Protein,Urine Dip 30 (Negative); Specific Gravity 1.005 (1.005-1.025); Urobilinogen NEGATIVE mg/dL (0-1)
[2019-07-29] MEDS ORDERED: ROCEPHIN 1 Gm-D5w 50 ml Bag** 1 G/50 ML IVPB IV STA (20:44)
[2019-07-29] MEDS ORDERED: Lantus Insulin SQ SCH (23:09)
[2019-07-29] MEDS ORDERED: MAG-OX 400 PO SCH (23:10)
[2019-07-29] MEDS ORDERED: Ambien 5 MG Tablet PO SCH (23:13)
[2019-07-29] MEDS: Ranexa 500 MG PO SCH (23:24)
[2019-07-29] MEDS: COREG 12.5 MG PO SCH (23:24)
[2019-07-29] MEDS: Colace 100 MG PO SCH (23:25)
[2019-07-30 04:44] LABS: Hematocrit 41.4 % (42-50); Hemoglobin 13.4 gm/dl (12.5-18.0); Mean Cell Volume 96.5 fl (78-100); Mean Corpuscular Hemoglobin 31.2 pg (26-32); Mean Corpuscular Hgb Concent. 32.4 g/dl (32-36); Mean Platelet Volume 12.1 fl (7.5-11.0); Platelet Count 135 K/mm3 (150-450); Red Blood Count 4.29 M/mm3 (4.1-5.6); Red Cell Distribution Width 15.1 % (11.5-14.0); White Blood Count 4.4 K/mm3 (4.0-10.5)
[2019-07-30 04:50] LABS: ANION GAP 12.5 MEQ/L (5-15); Calcium 9.1 mg/dL (8.4-10.2); Creatinine 1 1.39 mg/dL (0.66-1.25); Potassium 4.1 mmol/L (3.5-5.1)
[2019-07-30] MEDS ORDERED: Klor Con 10 MEQ PO ONE (08:24)
--- NOTE | 2019-07-30 08:44 | XRAY ---
Indication: Abdomen bloating. Multiple contiguous axial images obtained through the abdomen and pelvis using 80 cc Isovue 370 contrast only. Comparison: January 21, 2017. Lung bases now demonstrates bibasilar dependent atelectasis with tiny right effusion. Heart is now enlarged. Noncontrasted stomach and bowel loops appear nonobstructed again with scattered colonic diverticulosis throughout. New small perihepatic/perisplenic and lesser degree pelvis free fluid. No walled off fluid collection or free air. There remains hepatosplenomegaly, cholecystectomy, and left renal cyst. Remaining liver, pancreas, spleen, adrenal glands, kidneys, ureters, and bladder appear unremarkable. Stable heavy scattered vascular calcifications and 2.8 cm distal abdominal aorta ectasia. No pathologic retroperitoneal lymphadenopathy. Osseous structures again demonstrates moderate/advanced degenerative spondylosis throughout the thoracolumbar spine and bilateral L5 spondylolysis without spondylolisthesis. Impression: 1. New cardiomegaly and tiny right effusion. 2. New small abdomen/pelvic ascites. 3. Stable hepatosplenomegaly, colonic diverticulosis, left renal cyst, and chronic bony findings.
--- NOTE | 2019-07-30 08:48 | PCM.SSS ---
History of Present Illness - Chief Complaint Chief Complaint: CHF Date: 07/30/19 History of Present Illness: is a 74 year old male. Presented to ER last night with increasing sob over the past 1 week, pt. also notes early satiety over the past 1 month. Pt. notes unable to walk for more than 15 feet without getting out of breath. Pt. denies any fever, cough, n/v/d, urinary problems new rashes or neurologic symptoms. - Review of Systems Constitutional: No Fever, No Chills Eyes: No Symptoms Ears, Nose, & Throat: No Symptoms Respiratory: Short Of Breath Cardiac: Edema Abdominal/Gastrointestinal: No Abdominal Pain, No Nausea, No Vomiting, No Diarrhea Genitourinary Symptoms: No Dysuria Musculoskeletal: No Back Pain, No Neck Pain Skin: No Rash Neurological: No Dizziness, No Focal Weakness, No Sensory Changes Psychological: No Symptoms Endocrine: No Symptoms Hematologic/Lymphatic: No Symptoms Immunological/Allergic: No Symptoms All Other Systems: Reviewed and Negative Medications & Allergies Home Medications: Home Medication List Amlodipine Besylate 10 mg PO DAILY 01/21/17 [History Confirmed 07/30/19] Aspirin 81 mg PO DAILY 01/21/17 [History Confirmed 07/29/19] Budesonide/Formoterol Fumarate [Symbicort 160-4.5 Mcg Inhaler] 10.2 gm IH DAILY 01/21/17 [History Confirmed 07/29/19] Colestipol HCl [Colestid] 2 gm PO DAILY 01/21/17 [History Confirmed 07/29/19] Docusate Sodium [Stool Softener] 200 mg PO BID 01/21/17 [History Confirmed 07/29] Fenofibrate,Micronized [Fenofibrate] 200 mg PO DAILY 01/21/17 [History Confirmed 07/29/19] Ferrous Sulfate 325 mg [Feosol 325 mg] 325 mg PO DAILY 01/21/17 [History Confirmed 07/29/19] Finasteride 5 mg [Proscar 5 MG] 5 mg PO DAILY 01/21/17 [History Confirmed 07/29/19] Folic Acid 1 mg PO DAILY 01/21/17 [History Confirmed 07/29/19] Furosemide 40 mg [Lasix 40 MG] 40 mg PO DAILY 01/21/17 [History Confirmed 07/29/19] Glucosamine/D3/Boswellia Meagan [Osteo Bi-Flex Tablet] 1 each PO DAILY 01/21/17 [ History Confirmed 07/29/19] Insulin Glargine [Lantus Insulin] 40 unit SQ DAILY 01/21/17 [History Confirmed 07/29/19] Insulin Lispro [Humalog Kwikpen] 20 unit SQ BID 01/21/17 [History Confirmed ] Isosorbide Mononitrate 60 mg [Imdur 60MG] 30 mg PO DAILY 01/21/17 [History Confirmed 07/29/19] Losartan Potassium 100 mg PO DAILY 01/21/17 [History Confirmed 07/29/19] Magnesium 250 mg PO BID 01/21/17 [History Confirmed 07/29/19] Meloxicam 15 mg [Meloxicam 15 MG] 15 mg PO DAILY 01/21/17 [History Confirmed ] Probenecid 500 mg PO BID 01/21/17 [History Confirmed 07/29/19] Psyllium Husk/Aspartame [Metamucil] 425 gm PO DAILY 01/21/17 [History Confirmed 07/29/19] Ranolazine [Ranexa] 1,000 mg PO BID 01/21/17 [History Confirmed 07/29/19] Rosuvastatin Calcium [Crestor] 40 mg PO DAILY 01/21/17 [History Confirmed ] Saxagliptin HCl/Metformin HCl [Kombiglyze Xr 2.5-1,000 mg Tab] 2 each PO DAILY 01/21/17 [History Confirmed 07/29/19] Tamsulosin HCl 0.4 mg [Flomax 0.4 MG] 0.4 mg PO DAILY 01/21/17 [History Confirmed 07/29/19] carvediloL [Carvedilol] 25 mg PO BID 01/21/17 [History Confirmed 07/29/19] Zolpidem Tartrate 5 mg [Ambien 5 MG Tablet] 5 mg PO QHS 07/29/19 [History Confirmed 07/29/19] Allergies/Adverse Reactions: Allergies Allergy/AdvReac Type Severity Reaction Status Date / Time No Known Drug Allergies Allergy Verified 01/23/20 16:39 - Past Medical History Past Medical History: Yes Neurological History: No Pertinent History Cardiac History: Coronary Artery Disease, High Cholesterol, Hypertension, Myocardial Infarction ([place]), Other Respiratory History: Bronchitis, Pneumonia Endocrine Medical History: Diabetes Type II Musculoskelatal History: Osteoarthritis Comment: HX OF CAD AND 2 [place] BUT TRIED TO DO STENT BUT UNABLE, BLOOD CLOT RIGHT LEG, GOUT, GERD. PATIENT ALSO REPORTS RECENT HX OF BLISTER RIGHT MEDIAL ANKLE TREATED AT [facility] - STILL SMALL OPENING WHICH WEEPS. WEARS CIRCAID ON RIGHT LOWER LEG. SX HX: RIGHT TKR 8 YEARS AGO, LEFT TKR 10 YEARS, CHOLECYSTECTOMY, INGUINAL HERNIA REPAIR, BILATERAL ROTATOR CUFF REPAIR (BEFORE TOTAL KNEES WERE DONE) - Past Surgical History Past Surgical History: Yes Cardiac History: Cardiac Catheterization GI Surgical History: Cholecystectomy, Hernia Repair Musculskeletal Surgical Hx: Joint Replacement, Orthopedic Surgery Other Surgical History: knee replaced bilat. bilat surgery on shoulder - Social History Smoking Status: Former smoker Exposure to second hand smoke: No Alcohol: None Drug Use: none - Physical Exam Vital Signs: Vital Signs - 24 hr Temp Pulse Resp BP Pulse Ox 07/30/19 07:11 98 F 55 L 21 192/89 97 07/30/19 06:43 92 L 07/30/19 04:15 98.2 F 57 L 20 118/68 94 L 07/30/19 00:12 97.7 F 74 20 170/80 95 07/29/19 23:20 90 L 07/29/19 22:04 96 07/29/19 21:48 97.4 F 73 22 153/70 91 L 07/29/19 21:08 91 L 07/29/19 18:17 52 L 18 153/67 96 07/29/19 16:29 97.4 F 62 24 155/75 96 General Appearance: no apparent distress, alert Neurologic Exam: alert, normal mood/affect Eye Exam: PERRL/EOMI, eyes nml inspection, No photophobia Ears, Nose, Throat Exam: normal ENT inspection, pharynx normal, moist mucous membranes, No pharyngeal erythema Neck Exam: normal inspection, non-tender, supple Respiratory Exam: normal breath sounds, lungs clear, airway intact, No chest tenderness, No respiratory distress Cardiovascular Exam: regular rate/rhythm, normal heart sounds Gastrointestinal/Abdomen Exam: soft, normal bowel sounds, No tenderness, No distention, No mass, No guarding, No rebound Rectal Exam: deferred Back Exam: normal inspection, No vertebral tenderness Extremity Exam: normal range of motion, pelvis stable, other (mild 1+ pretibial edema noted bilaterally, lymphedema of right foot and 1+ pedal edema of right foot), No osei, No contusions, No calf tenderness Skin Exam: normal color, warm, other (chronic venous stasis changes noted on lower extremities) Results - Labs Lab/Micro Results: Lab Results-Last 24 Hours 07/29/19 07/29/19 07/29/19 Range/Units 17:30 17:30 17:30 WBC 5.3 (4.0-10.5) K/mm3 RBC 4.24 (4.1-5.6) M/mm3 Hgb 13.2 (12.5-18.0) gm/dl Hct 41.2 L (42-50) % MCV 97.2 (78-100) fl MCH 31.1 (26-32) pg MCHC 32.0 (32-36) g/dl RDW 15.0 H (11.5-14.0) % Plt Count 128 L (150-450) K/mm3 MPV 11.5 H (7.5-11.0) fl Gran % 51.2 (36.0-66.0) % Eos # (Auto) 0.06 (0-0.5) Absolute Lymphs (auto) 1.56 (1.0-4.6) Absolute Monos (auto) 0.94 (0.0-1.3) Lymphocytes % 29.5 (24.0-44.0) % Monocytes % 17.8 H (0.0-12.0) % Eosinophils % 1.1 (0.00-5.0) % Basophils % 0.4 (0.0-0.4) % Absolute Granulocytes 2.70 (1.4-6.9) Basophils # 0.02 (0-0.4) PT 43.0 H (8.83-12.87) SECONDS INR 3.70 H (0.8-3.0) Sodium 139 (137-145) mmol/L Potassium 4.5 (3.5-5.1) mmol/L Chloride 97 L (98-107) mmol/L Carbon Dioxide 33 H (22-30) mmol/L Anion Gap 13.2 (5-15) MEQ/L BUN 22 H (9-20) mg/dL Creatinine 1.43 H (0.66-1.25) mg/dL Estimated GFR 51.4 ML/MIN Glucose 74 (74-106) mg/dL Lactic Acid (0.4-2.0) Calcium 9.0 (8.4-10.2) mg/dL Total Bilirubin 0.30 (0.2-1.3) mg/dL AST 47 (17-59) U/L ALT 19 (0-50) U/L Alkaline Phosphatase 56 (38-126) U/L Troponin I (0.000-0.034) ng/mL NT-Pro-B Natriuret Pep 1220 H (0-900) pg/mL Serum Total Protein 7.4 (6.3-8.2) g/dL Albumin 3.8 (3.5-5.0) g/dL Lipase 145 (23-300) U/L Urine Color (YELLOW) Urine Appearance (CLEAR) Urine pH (5-6) Ur Specific Bradley (1.005-1.025) Urine Protein (Negative) Urine Ketones (NEGATIVE) Urine Blood (0-5) Titus/ul Urine Nitrite (NEGATIVE) Urine Bilirubin (NEGATIVE) Urine Urobilinogen (0-1) mg/dL Ur Leukocyte Esterase (NEGATIVE) Urine WBC (Auto) (0-5) /HPF Urine RBC (Auto) (0-2) /HPF U Epithel Cells (Auto) (FEW) /HPF Urine Bacteria (Auto) (NEGATIVE) /HPF Urine Culture Reflexed (NO) Urine Glucose (NEGATIVE) mg/dL 07/29/19 07/29/19 07/29/19 Range/Units 17:30 17:53 18:17 WBC (4.0-10.5) K/mm3 RBC (4.1-5.6) M/mm3 Hgb (12.5-18.0) gm/dl Hct (42-50) % MCV (78-100) fl MCH (26-32) pg MCHC (32-36) g/dl RDW (11.5-14.0) % Plt Count (150-450) K/mm3 MPV (7.5-11.0) fl Gran % (36.0-66.0) % Eos # (Auto) (0-0.5) Absolute Lymphs (auto) (1.0-4.6) Absolute Monos (auto) (0.0-1.3) Lymphocytes % (24.0-44.0) % Monocytes % (0.0-12.0) % Eosinophils % (0.00-5.0) % Basophils % (0.0-0.4) % Absolute Granulocytes (1.4-6.9) Basophils # (0-0.4) PT (8.83-12.87) SECONDS INR (0.8-3.0) Sodium (137-145) mmol/L Potassium (3.5-5.1) mmol/L Chloride (98-107) mmol/L Carbon Dioxide (22-30) mmol/L Anion Gap (5-15) MEQ/L BUN (9-20) mg/dL Creatinine (0.66-1.25) mg/dL Estimated GFR ML/MIN Glucose (74-106) mg/dL Lactic Acid 1.4 (0.4-2.0) Calcium (8.4-10.2) mg/dL Total Bilirubin (0.2-1.3) mg/dL AST (17-59) U/L ALT (0-50) U/L Alkaline Phosphatase (38-126) U/L Troponin I 0.013 (0.000-0.034) ng/mL NT-Pro-B Natriuret Pep (0-900) pg/mL Serum Total Protein (6.3-8.2) g/dL Albumin (3.5-5.0) g/dL Lipase (23-300) U/L Urine Color YELLOW (YELLOW) Urine Appearance CLEAR (CLEAR) Urine pH 7.0 (5-6) Ur Specific Bradley 1.005 (1.005-1.025) Urine Protein 30 (Negative) Urine Ketones NEGATIVE (NEGATIVE) Urine Blood NEGATIVE (0-5) Titus/ul Urine Nitrite NEGATIVE (NEGATIVE) Urine Bilirubin NEGATIVE (NEGATIVE) Urine Urobilinogen NEGATIVE (0-1) mg/dL Ur Leukocyte Esterase NEGATIVE (NEGATIVE) Urine WBC (Auto) NONE (0-5) /HPF Urine RBC (Auto) NONE (0-2) /HPF U Epithel Cells (Auto) NONE (FEW) /HPF Urine Bacteria (Auto) NONE (NEGATIVE) /HPF Urine Culture Reflexed NO (NO) Urine Glucose 150 (NEGATIVE) mg/dL 07/29/19 07/29/19 07/30/19 Range/Units 20:31 23:01 03:08 WBC (4.0-10.5) K/mm3 RBC (4.1-5.6) M/mm3 Hgb (12.5-18.0) gm/dl Hct (42-50) % MCV (78-100) fl MCH (26-32) pg MCHC (32-36) g/dl RDW (11.5-14.0) % Plt Count (150-450) K/mm3 MPV (7.5-11.0) fl Gran % (36.0-66.0) % Eos # (Auto) (0-0.5) Absolute Lymphs (auto) (1.0-4.6) Absolute Monos (auto) (0.0-1.3) Lymphocytes % (24.0-44.0) % Monocytes % (0.0-12.0) % Eosinophils % (0.00-5.0) % Basophils % (0.0-0.4) % Absolute Granulocytes (1.4-6.9) Basophils # (0-0.4) PT (8.83-12.87) SECONDS INR (0.8-3.0) Sodium (137-145) mmol/L Potassium (3.5-5.1) mmol/L Chloride (98-107) mmol/L Carbon Dioxide (22-30) mmol/L Anion Gap (5-15) MEQ/L BUN (9-20) mg/dL Creatinine (0.66-1.25) mg/dL Estimated GFR ML/MIN Glucose (74-106) mg/dL Lactic Acid (0.4-2.0) Calcium (8.4-10.2) mg/dL Total Bilirubin (0.2-1.3) mg/dL AST (17-59) U/L ALT (0-50) U/L Alkaline Phosphatase (38-126) U/L Troponin I 0.014 0.013 0.013 (0.000-0.034) ng/mL NT-Pro-B Natriuret Pep (0-900) pg/mL Serum Total Protein (6.3-8.2) g/dL Albumin (3.5-5.0) g/dL Lipase (23-300) U/L Urine Color (YELLOW) Urine Appearance (CLEAR) Urine pH (5-6) Ur Specific Bradley (1.005-1.025) Urine Protein (Negative) Urine Ketones (NEGATIVE) Urine Blood (0-5) Titus/ul Urine Nitrite (NEGATIVE) Urine Bilirubin (NEGATIVE) Urine Urobilinogen (0-1) mg/dL Ur Leukocyte Esterase (NEGATIVE) Urine WBC (Auto) (0-5) /HPF Urine RBC (Auto) (0-2) /HPF U Epithel Cells (Auto) (FEW) /HPF Urine Bacteria (Auto) (NEGATIVE) /HPF Urine Culture Reflexed (NO) Urine Glucose (NEGATIVE) mg/dL 07/30/19 07/30/19 07/30/19 Range/Units 04:10 04:10 04:10 WBC 4.4 (4.0-10.5) K/mm3 RBC 4.29 (4.1-5.6) M/mm3 Hgb 13.4 (12.5-18.0) gm/dl Hct 41.4 L (42-50) % MCV 96.5 (78-100) fl MCH 31.2 (26-32) pg MCHC 32.4 (32-36) g/dl RDW 15.1 H (11.5-14.0) % Plt Count 135 L (150-450) K/mm3 MPV 12.1 H (7.5-11.0) fl Gran % (36.0-66.0) % Eos # (Auto) (0-0.5) Absolute Lymphs (auto) (1.0-4.6) Absolute Monos (auto) (0.0-1.3) Lymphocytes % (24.0-44.0) % Monocytes % (0.0-12.0) % Eosinophils % (0.00-5.0) % Basophils % (0.0-0.4) % Absolute Granulocytes (1.4-6.9) Basophils # (0-0.4) PT (8.83-12.87) SECONDS INR (0.8-3.0) Sodium 138 (137-145) mmol/L Potassium 4.1 (3.5-5.1) mmol/L Chloride 95 L (98-107) mmol/L Carbon Dioxide 34 H (22-30) mmol/L Anion Gap 12.5 (5-15) MEQ/L BUN 24 H (9-20) mg/dL Creatinine 1.39 H (0.66-1.25) mg/dL Estimated GFR 53.1 ML/MIN Glucose 169 H (74-106) mg/dL Lactic Acid (0.4-2.0) Calcium 9.1 (8.4-10.2) mg/dL Total Bilirubin (0.2-1.3) mg/dL AST (17-59) U/L ALT (0-50) U/L Alkaline Phosphatase (38-126) U/L Troponin I 0.014 (0.000-0.034) ng/mL NT-Pro-B Natriuret Pep 1210 H (0-900) pg/mL Serum Total Protein (6.3-8.2) g/dL Albumin (3.5-5.0) g/dL Lipase (23-300) U/L Urine Color (YELLOW) Urine Appearance (CLEAR) Urine pH (5-6) Ur Specific Bradley (1.005-1.025) Urine Protein (Negative) Urine Ketones (NEGATIVE) Urine Blood (0-5) Titus/ul Urine Nitrite (NEGATIVE) Urine Bilirubin (NEGATIVE) Urine Urobilinogen (0-1) mg/dL Ur Leukocyte Esterase (NEGATIVE) Urine WBC (Auto) (0-5) /HPF Urine RBC (Auto) (0-2) /HPF U Epithel Cells (Auto) (FEW) /HPF Urine Bacteria (Auto) (NEGATIVE) /HPF Urine Culture Reflexed (NO) Urine Glucose (NEGATIVE) mg/dL - Radiology Impressions Radiology Exams & Impressions: Radiology Procedures Category Date Time Status ABDOMEN AND PELVIS W CONTRAST [CT] Stat Exams 07/29/19 18:15 Taken CHEST 1 VIEW (PORTABLE) Routine Exams 07/30/19 06:08 Taken CHEST 2 VIEWS (PA AND LAT) Stat Exams 07/29/19 16:58 Taken - Other Procedures and Tests Respiratory Therapy 07/29/19 21:08 Oxygen NASAL CANNULA 2 lpm Assessment/Plan (1) Ascites Current Visit: Yes Status: Acute Qualifiers: Ascites type: other type Qualified Code(s): R18.8 - Other ascites Assessment & Plan: Pt. will require further outpatient evaluation Code(s): R18.8 - OTHER ASCITES (2) CHF exacerbation Current Visit: Yes Status: Acute Qualifiers: Heart failure type: unspecified Qualified Code(s): I50.9 - Heart failure, unspecified Assessment & Plan: IV lasix Code(s): I50.9 - HEART FAILURE, UNSPECIFIED (3) SOB (shortness of breath) Current Visit: Yes Status: Acute Assessment & Plan: IV lasix to reverse CHF. Serial troponin to check for recent [place], cover with iv abx Code(s): R06.02 - SHORTNESS OF BREATH Hospital Summary - Hospital Course Hospital Course: Pt. admitted after receiving 80mg IV lasix, pt. diuresed 2.6Kg in 8 hours. Pt. feeling much better this am and wants to go home. Pt. will receive additional 40mg of IV lasix and discharge to home on same medications. Pt. has appointment with pcp friday in 3 days at which time changes in lasix will be addressed. Pt. also informed he will need further evaluation for ascites found on CT last night. Pt. voiced understanding and agrees with treatment plan. Questions answered at bedside. - Vitals & Intake/Output Vital Signs: Vital Signs Temperature 98 F 07/30/19 07:11 Pulse Rate 55 L 07/30/19 07:11 Respiratory Rate 21 07/30/19 07:11 Blood Pressure 192/89 07/30/19 07:11 O2 Sat by Pulse Oximetry 97 07/30/19 07:11 Intake & Output: Intake & Output 07/27/19 07/28/19 07/29/19 07/30/19 11:59 11:59 11:59 11:59 Intake Total 900 Output Total 1600 Balance -700 Weight 136.6 kg - Lab Result Diagrams: 07/30/19 04:10 07/30/19 04:10 Lab Results-Last 24 Hrs: Lab Results-Last 24 Hours 07/29/19 07/29/19 07/29/19 Range/Units 17:30 17:30 17:30 WBC 5.3 (4.0-10.5) K/mm3 RBC 4.24 (4.1-5.6) M/mm3 Hgb 13.2 (12.5-18.0) gm/dl Hct 41.2 L (42-50) % MCV 97.2 (78-100) fl MCH 31.1 (26-32) pg MCHC 32.0 (32-36) g/dl RDW 15.0 H (11.5-14.0) % Plt Count 128 L (150-450) K/mm3 MPV 11.5 H (7.5-11.0) fl Gran % 51.2 (36.0-66.0) % Eos # (Auto) 0.06 (0-0.5) Absolute Lymphs (auto) 1.56 (1.0-4.6) Absolute Monos (auto) 0.94 (0.0-1.3) Lymphocytes % 29.5 (24.0-44.0) % Monocytes % 17.8 H (0.0-12.0) % Eosinophils % 1.1 (0.00-5.0) % Basophils % 0.4 (0.0-0.4) % Absolute Granulocytes 2.70 (1.4-6.9) Basophils # 0.02 (0-0.4) PT 43.0 H (8.83-12.87) SECONDS INR 3.70 H (0.8-3.0) Sodium 139 (137-145) mmol/L Potassium 4.5 (3.5-5.1) mmol/L Chloride 97 L (98-107) mmol/L Carbon Dioxide 33 H (22-30) mmol/L Anion Gap 13.2 (5-15) MEQ/L BUN 22 H (9-20) mg/dL Creatinine 1.43 H (0.66-1.25) mg/dL Estimated GFR 51.4 ML/MIN Glucose 74 (74-106) mg/dL Lactic Acid (0.4-2.0) Calcium 9.0 (8.4-10.2) mg/dL Total Bilirubin 0.30 (0.2-1.3) mg/dL AST 47 (17-59) U/L ALT 19 (0-50) U/L Alkaline Phosphatase 56 (38-126) U/L Troponin I (0.000-0.034) ng/mL NT-Pro-B Natriuret Pep 1220 H (0-900) pg/mL Serum Total Protein 7.4 (6.3-8.2) g/dL Albumin 3.8 (3.5-5.0) g/dL Lipase 145 (23-300) U/L Urine Color (YELLOW) Urine Appearance (CLEAR) Urine pH (5-6) Ur Specific Bradley (1.005-1.025) Urine Protein (Negative) Urine Ketones (NEGATIVE) Urine Blood (0-5) Titus/ul Urine Nitrite (NEGATIVE) Urine Bilirubin (NEGATIVE) Urine Urobilinogen (0-1) mg/dL Ur Leukocyte Esterase (NEGATIVE) Urine WBC (Auto) (0-5) /HPF Urine RBC (Auto) (0-2) /HPF U Epithel Cells (Auto) (FEW) /HPF Urine Bacteria (Auto) (NEGATIVE) /HPF Urine Culture Reflexed (NO) Urine Glucose (NEGATIVE) mg/dL 07/29/19 07/29/19 07/29/19 Range/Units 17:30 17:53 18:17 WBC (4.0-10.5) K/mm3 RBC (4.1-5.6) M/mm3 Hgb (12.5-18.0) gm/dl Hct (42-50) % MCV (78-100) fl MCH (26-32) pg MCHC (32-36) g/dl RDW (11.5-14.0) % Plt Count (150-450) K/mm3 MPV (7.5-11.0) fl Gran % (36.0-66.0) % Eos # (Auto) (0-0.5) Absolute Lymphs (auto) (1.0-4.6) Absolute Monos (auto) (0.0-1.3) Lymphocytes % (24.0-44.0) % Monocytes % (0.0-12.0) % Eosinophils % (0.00-5.0) % Basophils % (0.0-0.4) % Absolute Granulocytes (1.4-6.9) Basophils # (0-0.4) PT (8.83-12.87) SECONDS INR (0.8-3.0) Sodium (137-145) mmol/L Potassium (3.5-5.1) mmol/L Chloride (98-107) mmol/L Carbon Dioxide (22-30) mmol/L Anion Gap (5-15) MEQ/L BUN (9-20) mg/dL Creatinine (0.66-1.25) mg/dL Estimated GFR ML/MIN Glucose (74-106) mg/dL Lactic Acid 1.4 (0.4-2.0) Calcium (8.4-10.2) mg/dL Total Bilirubin (0.2-1.3) mg/dL AST (17-59) U/L ALT (0-50) U/L Alkaline Phosphatase (38-126) U/L Troponin I 0.013 (0.000-0.034) ng/mL NT-Pro-B Natriuret Pep (0-900) pg/mL Serum Total Protein (6.3-8.2) g/dL Albumin (3.5-5.0) g/dL Lipase (23-300) U/L Urine Color YELLOW (YELLOW) Urine Appearance CLEAR (CLEAR) Urine pH 7.0 (5-6) Ur Specific Bradley 1.005 (1.005-1.025) Urine Protein 30 (Negative) Urine Ketones NEGATIVE (NEGATIVE) Urine Blood NEGATIVE (0-5) Titus/ul Urine Nitrite NEGATIVE (NEGATIVE) Urine Bilirubin NEGATIVE (NEGATIVE) Urine Urobilinogen NEGATIVE (0-1) mg/dL Ur Leukocyte Esterase NEGATIVE (NEGATIVE) Urine WBC (Auto) NONE (0-5) /HPF Urine RBC (Auto) NONE (0-2) /HPF U Epithel Cells (Auto) NONE (FEW) /HPF Urine Bacteria (Auto) NONE (NEGATIVE) /HPF Urine Culture Reflexed NO (NO) Urine Glucose 150 (NEGATIVE) mg/dL 07/29/19 07/29/19 07/30/19 Range/Units 20:31 23:01 03:08 WBC (4.0-10.5) K/mm3 RBC (4.1-5.6) M/mm3 Hgb (12.5-18.0) gm/dl Hct (42-50) % MCV (78-100) fl MCH (26-32) pg MCHC (32-36) g/dl RDW (11.5-14.0) % Plt Count (150-450) K/mm3 MPV (7.5-11.0) fl Gran % (36.0-66.0) % Eos # (Auto) (0-0.5) Absolute Lymphs (auto) (1.0-4.6) Absolute Monos (auto) (0.0-1.3) Lymphocytes % (24.0-44.0) % Monocytes % (0.0-12.0) % Eosinophils % (0.00-5.0) % Basophils % (0.0-0.4) % Absolute Granulocytes (1.4-6.9) Basophils # (0-0.4) PT (8.83-12.87) SECONDS INR (0.8-3.0) Sodium (137-145) mmol/L Potassium (3.5-5.1) mmol/L Chloride (98-107) mmol/L Carbon Dioxide (22-30) mmol/L Anion Gap (5-15) MEQ/L BUN (9-20) mg/dL Creatinine (0.66-1.25) mg/dL Estimated GFR ML/MIN Glucose (74-106) mg/dL Lactic Acid (0.4-2.0) Calcium (8.4-10.2) mg/dL Total Bilirubin (0.2-1.3) mg/dL AST (17-59) U/L ALT (0-50) U/L Alkaline Phosphatase (38-126) U/L Troponin I 0.014 0.013 0.013 (0.000-0.034) ng/mL NT-Pro-B Natriuret Pep (0-900) pg/mL Serum Total Protein (6.3-8.2) g/dL Albumin (3.5-5.0) g/dL Lipase (23-300) U/L Urine Color (YELLOW) Urine Appearance (CLEAR) Urine pH (5-6) Ur Specific Bradley (1.005-1.025) Urine Protein (Negative) Urine Ketones (NEGATIVE) Urine Blood (0-5) Titus/ul Urine Nitrite (NEGATIVE) Urine Bilirubin (NEGATIVE) Urine Urobilinogen (0-1) mg/dL Ur Leukocyte Esterase (NEGATIVE) Urine WBC (Auto) (0-5) /HPF Urine RBC (Auto) (0-2) /HPF U Epithel Cells (Auto) (FEW) /HPF Urine Bacteria (Auto) (NEGATIVE) /HPF Urine Culture Reflexed (NO) Urine Glucose (NEGATIVE) mg/dL 07/30/19 07/30/19 07/30/19 Range/Units 04:10 04:10 04:10 WBC 4.4 (4.0-10.5) K/mm3 RBC 4.29 (4.1-5.6) M/mm3 Hgb 13.4 (12.5-18.0) gm/dl Hct 41.4 L (42-50) % MCV 96.5 (78-100) fl MCH 31.2 (26-32) pg MCHC 32.4 (32-36) g/dl RDW 15.1 H (11.5-14.0) % Plt Count 135 L (150-450) K/mm3 MPV 12.1 H (7.5-11.0) fl Gran % (36.0-66.0) % Eos # (Auto) (0-0.5) Absolute Lymphs (auto) (1.0-4.6) Absolute Monos (auto) (0.0-1.3) Lymphocytes % (24.0-44.0) % Monocytes % (0.0-12.0) % Eosinophils % (0.00-5.0) % Basophils % (0.0-0.4) % Absolute Granulocytes (1.4-6.9) Basophils # (0-0.4) PT (8.83-12.87) SECONDS INR (0.8-3.0) Sodium 138 (137-145) mmol/L Potassium 4.1 (3.5-5.1) mmol/L Chloride 95 L (98-107) mmol/L Carbon Dioxide 34 H (22-30) mmol/L Anion Gap 12.5 (5-15) MEQ/L BUN 24 H (9-20) mg/dL Creatinine 1.39 H (0.66-1.25) mg/dL Estimated GFR 53.1 ML/MIN Glucose 169 H (74-106) mg/dL Lactic Acid (0.4-2.0) Calcium 9.1 (8.4-10.2) mg/dL Total Bilirubin (0.2-1.3) mg/dL AST (17-59) U/L ALT (0-50) U/L Alkaline Phosphatase (38-126) U/L Troponin I 0.014 (0.000-0.034) ng/mL NT-Pro-B Natriuret Pep 1210 H (0-900) pg/mL Serum Total Protein (6.3-8.2) g/dL Albumin (3.5-5.0) g/dL Lipase (23-300) U/L Urine Color (YELLOW) Urine Appearance (CLEAR) Urine pH (5-6) Ur Specific Bradley (1.005-1.025) Urine Protein (Negative) Urine Ketones (NEGATIVE) Urine Blood (0-5) Titus/ul Urine Nitrite (NEGATIVE) Urine Bilirubin (NEGATIVE) Urine Urobilinogen (0-1) mg/dL Ur Leukocyte Esterase (NEGATIVE) Urine WBC (Auto) (0-5) /HPF Urine RBC (Auto) (0-2) /HPF U Epithel Cells (Auto) (FEW) /HPF Urine Bacteria (Auto) (NEGATIVE) /HPF Urine Culture Reflexed (NO) Urine Glucose (NEGATIVE) mg/dL - Radiology Exams Ordered Rad Exams-Entire Visit: Radiology Procedures Category Date Time Status ABDOMEN AND PELVIS W CONTRAST [CT] Stat Exams 07/29/19 18:15 Taken CHEST 1 VIEW (PORTABLE) Routine Exams 07/30/19 06:08 Taken CHEST 2 VIEWS (PA AND LAT) Stat Exams 07/29/19 16:58 Taken - Procedures and Test Procedures and Tests throughout Hospitalization: Therapy Orders & Screens 07/29/19 21:08 Oxygen NASAL CANNULA 2 lpm Comment: Diagnosis: CHF - Discharge Discharge Date: 07/30/19 Disposition: Home, Self-Care Condition: Stable Prescriptions: No Action Aspirin 81 mg PO DAILY Probenecid 500 mg PO BID Meloxicam 15 mg [Meloxicam 15 MG] 15 mg PO DAILY Glucosamine/D3/Boswellia Meagan [Osteo Bi-Flex Tablet] 1 each PO DAILY Isosorbide Mononitrate 60 mg [Imdur 60MG] 30 mg PO DAILY Ferrous Sulfate 325 mg [Feosol 325 mg] 325 mg PO DAILY Losartan Potassium 100 mg PO DAILY Psyllium Husk/Aspartame [Metamucil] 425 gm PO DAILY Docusate Sodium [Stool Softener] 200 mg PO BID carvediloL [Carvedilol] 25 mg PO BID Budesonide/Formoterol Fumarate [Symbicort 160-4.5 Mcg Inhaler] 10.2 gm IH DAILY Furosemide 40 mg [Lasix 40 MG] 40 mg PO DAILY Insulin Glargine [Lantus Insulin] 40 unit SQ DAILY Finasteride 5 mg [Proscar 5 MG] 5 mg PO DAILY Colestipol HCl [Colestid] 2 gm PO DAILY Folic Acid 1 mg PO DAILY Tamsulosin HCl 0.4 mg [Flomax 0.4 MG] 0.4 mg PO DAILY Saxagliptin HCl/Metformin HCl [Kombiglyze Xr 2.5-1,000 mg Tab] 2 each PO DAILY Rosuvastatin Calcium [Crestor] 40 mg PO DAILY Fenofibrate,Micronized [Fenofibrate] 200 mg PO DAILY Ranolazine [Ranexa] 1,000 mg PO BID Amlodipine Besylate 5 mg PO DAILY Magnesium 250 mg PO BID Insulin Lispro [Humalog Kwikpen] 20 unit SQ BID Zolpidem Tartrate 5 mg [Ambien 5 MG Tablet] 5 mg PO QHS Additional Instructions: Has appointment with pcp Friday, further discussion of lasix dose, 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 Follow up with: TAYLA MALAGON MD [Primary Care Provider] - 1 Week
--- NOTE | 2019-07-30 09:12 | XRAY ---
Indication: CHF. Comparison: None PA/lateral chest demonstrates cardiomegaly and tiny bibasilar effusions possibly mild/early cardiac decompensation. Remaining lungs clear. Bony thorax intact with mild degenerative changes.
--- NOTE | 2019-07-30 09:12 | XRAY ---
Indication: CHF. Comparison: One day earlier. Portable apical lordotic chest now underinflated again with cardiomegaly and tiny bibasilar effusions. No new cardiopulmonary abnormalities.
[2019-07-30] MEDS: COREG 12.5 MG PO SCH (09:13)
[2019-07-30] MEDS: Ranexa 500 MG PO SCH (09:13)
[2019-07-30] MEDS: Colace 100 MG PO SCH (09:14)
[2019-07-30] MEDS ORDERED: Proscar 5 MG PO SCH (10:00)
[2019-07-30] MEDS ORDERED: FEOSOL 325 MG PO SCH (10:00)
[2019-07-30] MEDS ORDERED: FOLATE 1 MG PO SCH (10:00)
[2019-07-30] MEDS ORDERED: NON-FORMULARY ITEM (Aspirin [Aspirin] 81 MG) PO SCH (10:00)
[2019-07-30] MEDS ORDERED: NON-FORMULARY ITEM (Losartan Potassium [Losartan Potassium] 100 MG) PO SCH (10:00)
[2019-07-30] MEDS ORDERED: METFORMIN HCL PO SCH (10:00)
[2019-07-30] MEDS ORDERED: ZOCOR 20MG PO SCH (10:00)
[2019-07-30] MEDS ORDERED: NovoLOG Insulin SQ SCH (10:00)
[2019-07-30] MEDS ORDERED: Flomax 0.4 MG PO SCH (10:00)
[2019-07-30] MEDS ORDERED: FENOFIBRATE MICRONIZED 200 MG PO SCH (10:00)
[2019-07-30] MEDS ORDERED: NON-FORMULARY ITEM (Meloxicam 15 Mg [Meloxicam 15 Mg] 15 MG) PO SCH (10:00)
[2019-07-30] MEDS ORDERED: Imdur 30 MG PO SCH (10:00)
[2019-07-30] MEDS ORDERED: [UNRECOGNIZED DRUG - OTHER] PO SCH (10:00)
[2019-07-30] MEDS ORDERED: [UNRECOGNIZED DRUG - OTHER] PO SCH (10:00)
[2019-07-30] MEDS ORDERED: COLESTIPOL HCL 2 GM PO SCH (10:00)
[2019-07-30] MEDS ORDERED: BOSWELLIA SERRA PO SCH (10:00)
[2019-07-30] MEDS ORDERED: SAXAGLIPTIN HCL PO SCH (10:00)
[2019-07-30] MEDS ORDERED: Lasix 40 MG PO SCH (10:00)
[2019-07-30] MEDS ORDERED: NON-FORMULARY ITEM (Rosuvastatin Calcium [Crestor] 40 MG) PO SCH (10:00)
[2019-07-30] MEDS ORDERED: NON-FORMULARY ITEM (Budesonide/Formoterol Fumarate [Symbicort 160-4.5 Mcg Inhaler] 10.2 GM IH SCH (10:00)
[2019-07-30] MEDS ORDERED: MAG-OX 400 PO SCH (10:00)
[2019-07-30] MEDS ORDERED: Lasix 40 MG/4 ML IV SCH ×2 (10:00)
[2019-07-30] MEDS ORDERED: D3 PO SCH (10:00)
[2019-07-30] MEDS ORDERED: ECOTRIN 81 MG PO SCH (10:00)
[2019-07-30] MEDS ORDERED: ASPARTAME PO SCH (10:00)
[2019-07-30] MEDS ORDERED: Tricor 145 MG PO SCH (10:00)
[2019-07-30] MEDS ORDERED: Metamucil PACKET PO SCH (10:00)
[2019-07-30] MEDS ORDERED: NORVASC 5 MG PO SCH (10:00)
[2019-07-30] MEDS ORDERED: Cozaar 50 MG PO SCH (10:00)
[2019-07-30] MEDS ORDERED: GLUCOSAMINE PO SCH (10:00)
[2019-07-30] MEDS ORDERED: INSULIN LISPRO 20 UNIT SQ SCH (10:00)
[2019-07-30] MEDS ORDERED: PROBENECID 500 MG PO SCH (10:00)
[2019-07-30] MEDS ORDERED: Mobic 7.5 MG PO SCH (10:00)
[2019-07-30] MEDS ORDERED: Januvia 50 MG PO SCH ×2 (10:00→10:10)
[2019-07-30] MEDS ORDERED: Glucophage XR 500 MG PO SCH (10:10)
[2019-07-30 11:40] VITALS: BP 173/81; PULSE 65; O2SAT 93
[2019-07-30] MEDS ORDERED: Colace 100 MG PO SCH (22:00)
== END 2019-07-30 11:50 | disposition home or self-care (01) ==
LOC: ED 16:12 → MED SURG 20:57 → INTOOBSV 20:57
PROVIDERS: ADMIT Family Medicine; ATTEND Family Medicine
DX: R18.8 Other ascites (principal); I11.0 Hypertensive heart disease with heart failure; R06.02 Shortness of breath; R68.81 Early satiety; I25.10 Atherosclerotic heart disease of native coronary artery without angina pectoris; E11.9 Type 2 diabetes mellitus without complications; E78.00 Pure hypercholesterolemia, unspecified; I25.2 Old myocardial infarction; Z79.899 Other long term (current) drug therapy
CPT/HCPCS: 36000; 36415; 71045; 71046; 74177; 80048; 80053; 81001; 83605; 83690; 83880; 84484; 85025; 85027; 85610; 93005; 93041; 93268; 94760; 96374; 99285; G0378; J0696; J1940; A9270-GY

== ENCOUNTER 2020-01-26 09:03 | Day surgery (SDC) | payer MEDICARE ==
[2020-01-26] MEDS ORDERED: LIDOCAINE HCL 2% 100 MG/5 ML IJ ONE (09:04)
[2020-01-26] MEDS ORDERED: Xylocaine 1% Vial 30 ML PF IJ ONE (09:04)
[2020-01-26] MEDS ORDERED: Depo-Medrol 40 MG/ML IM ONE (09:04)
[2020-01-26 09:34] LABS: INR 1.31 (0.8-3.0); PROTIME 14.8 SECONDS (8.83-12.87)
[2020-01-26] MEDS ORDERED: DIPRIVAN 200 MG/20 ML IV ONE (09:59)
[2020-01-26] MEDS ORDERED: Ketamine HCl 50 MG/ML ONE (10:01)
[2020-01-26] MEDS ORDERED: Lactated Ringers 1,000 ML IV ONE (13:51)
--- NOTE | 2020-01-29 17:48 | XRAY ---
Indication: Bilateral L4-S1 MBB. Intraoperative fluoroscopy was provided for 22 seconds. A single digital PA spot image demonstrates posterior spinal needle tips projected over the expected course of the left and right L4-S1 nerve roots. Correlate with intraoperative findings/report.
--- NOTE | 2020-01-31 07:45 | XRAY ---
22 seconds fluoroscopy time in surgery for bilateral L4-S1 MBB.
== END 2020-01-26 10:43 | disposition home or self-care (01) ==
LOC: SDC-PAIN 09:03
PROVIDERS: ATTEND Psychiatry & Neurology Pain Medicine
DX: M47.816 Spondylosis without myelopathy or radiculopathy, lumbar region (principal); E11.9 Type 2 diabetes mellitus without complications; I10 Essential (primary) hypertension; J44.9 Chronic obstructive pulmonary disease, unspecified; K21.9 Gastro-esophageal reflux disease without esophagitis; Z86.718 Personal history of other venous thrombosis and embolism; Z79.01 Long term (current) use of anticoagulants; Z79.899 Other long term (current) drug therapy
CPT/HCPCS: 36415; 64493; 64494; 72020; 77002; 82962; 85610; J1030; J2001; J2704

== ENCOUNTER 2020-02-23 08:45 | Day surgery (SDC) | payer MEDICARE | END 2020-02-23 09:30 | disposition home or self-care (01) | LOC: SDC-PAIN 08:45 | PROVIDERS: ATTEND Psychiatry & Neurology Pain Medicine | DX: Z53.09 Procedure and treatment not carried out because of other contraindication (principal) ==

== ENCOUNTER 2020-03-08 09:07 | Day surgery (SDC) | payer MEDICARE ==
[2020-03-08] MEDS ORDERED: Depo-Medrol 40 MG/ML IM ONE (09:08)
[2020-03-08] MEDS ORDERED: BUPIVACAINE 0.5% VIAL IJ ONE (09:08)
[2020-03-08 09:57] LABS: INR 1.19 (0.8-3.0); PROTIME 13.5 SECONDS (8.83-12.87)
[2020-03-08] MEDS ORDERED: DIPRIVAN 200 MG/20 ML IV ONE (11:30)
[2020-03-08] MEDS ORDERED: Ketamine HCl 50 MG/ML ONE (11:30)
--- NOTE | 2020-03-08 12:23 | XRAY ---
Indication: Bilateral L4-S1 MBB. Intraoperative fluoroscopy was provided for 19 seconds. 3 digital spot images submitted for interpretation demonstrates posterior needle tips projecting over the expected course of the left and right L4-S1 nerve roots. Correlate with intraoperative findings/report.
--- NOTE | 2020-03-08 12:25 | XRAY ---
19 seconds fluoroscopy time in surgery for bilateral L4-S1 MBB.
[2020-03-08] MEDS ORDERED: Lactated Ringers 1,000 ML IV ONE (15:30)
== END 2020-03-08 12:00 | disposition home or self-care (01) ==
LOC: SDC-PAIN 09:07
PROVIDERS: ATTEND Psychiatry & Neurology Pain Medicine
DX: M47.816 Spondylosis without myelopathy or radiculopathy, lumbar region (principal); I10 Essential (primary) hypertension; E11.9 Type 2 diabetes mellitus without complications; J44.9 Chronic obstructive pulmonary disease, unspecified; K21.9 Gastro-esophageal reflux disease without esophagitis; Z79.01 Long term (current) use of anticoagulants; Z86.718 Personal history of other venous thrombosis and embolism; Z79.899 Other long term (current) drug therapy
CPT/HCPCS: 36415; 64493; 64494; 72020; 77002; 82962; 85610; J1030; J2704

== ENCOUNTER 2020-03-29 07:56 | Day surgery (SDC) | payer MEDICARE ==
[~2020-03-29 07:56] MED LIST: DIPRIVAN 200 MG/20 ML IV ONE; Ketamine HCl 50 MG/ML ONE
[2020-03-29] MEDS ORDERED: Xylocaine 1% Vial 30 ML PF IJ ONE (07:57)
[2020-03-29] MEDS ORDERED: Depo-Medrol 40 MG/ML IM ONE (07:57)
[2020-03-29] MEDS ORDERED: BUPIVACAINE 0.5% VIAL IJ ONE (07:57)
[2020-03-29 08:43] LABS: INR 1.18 (0.8-3.0); PROTIME 13.4 SECONDS (8.83-12.87)
[2020-03-29] MEDS ORDERED: Lactated Ringers 1,000 ML IV ONE (13:51)
--- NOTE | 2020-03-30 14:55 | XRAY ---
41 seconds fluoroscopy time in surgery for left L4-S1 RFA.
--- NOTE | 2020-04-01 22:12 | XRAY ---
Indication: Left L4-S1 RFA Intraoperative fluoroscopy was provided for 41 seconds. 3 digital spot images submitted for interpretation demonstrate posterior needle tips projected over the expected course of the left L4-S1 nerve roots. Correlate with intraoperative findings/report. Moderate to marked degenerative disc disease is seen at L4-L5 and L5-S1.
== END 2020-03-29 09:54 | disposition home or self-care (01) ==
LOC: SDC-PAIN 07:56
PROVIDERS: ATTEND Psychiatry & Neurology Pain Medicine
DX: M47.816 Spondylosis without myelopathy or radiculopathy, lumbar region (principal); M47.817 Spondylosis without myelopathy or radiculopathy, lumbosacral region; I10 Essential (primary) hypertension; J44.9 Chronic obstructive pulmonary disease, unspecified; E11.9 Type 2 diabetes mellitus without complications; I25.10 Atherosclerotic heart disease of native coronary artery without angina pectoris; K21.9 Gastro-esophageal reflux disease without esophagitis; Z79.01 Long term (current) use of anticoagulants; Z79.899 Other long term (current) drug therapy; Z86.718 Personal history of other venous thrombosis and embolism
CPT/HCPCS: 36415; 64635; 64636; 72100; 77002; 82962; 85610; 99100; J1030; J2001; J2704

== ENCOUNTER 2020-04-19 08:59 | Day surgery (SDC) | payer MEDICARE ==
[2020-04-19] MEDS ORDERED: BUPIVACAINE 0.5% VIAL IJ ONE (09:00)
[2020-04-19] MEDS ORDERED: Xylocaine 1% Vial 30 ML PF IJ ONE (09:00)
[2020-04-19] MEDS ORDERED: Depo-Medrol 40 MG/ML IM ONE (09:00)
[2020-04-19 09:38] LABS: INR 1.19 (0.8-3.0); PROTIME 13.5 SECONDS (8.83-12.87)
--- NOTE | 2020-04-19 12:06 | XRAY ---
Indication: Right L4-S1 RFA. Intraoperative fluoroscopy was provided for 26 seconds. 3 digital spot images submitted for interpretation demonstrates posterior needle tips projecting over the expected right L4-S1 nerve roots. Correlate with intraoperative findings/report.
--- NOTE | 2020-04-19 12:57 | XRAY ---
26 seconds fluoroscopy time in surgery for right L4-S1 RFA.
[2020-04-19] MEDS ORDERED: Lactated Ringers 1,000 ML IV ONE (15:57)
== END 2020-04-19 11:26 | disposition home or self-care (01) ==
LOC: SDC-PAIN 08:59
PROVIDERS: ATTEND Psychiatry & Neurology Pain Medicine
DX: M47.816 Spondylosis without myelopathy or radiculopathy, lumbar region (principal); I10 Essential (primary) hypertension; E11.9 Type 2 diabetes mellitus without complications; J44.9 Chronic obstructive pulmonary disease, unspecified; K21.9 Gastro-esophageal reflux disease without esophagitis; Z86.718 Personal history of other venous thrombosis and embolism; I25.10 Atherosclerotic heart disease of native coronary artery without angina pectoris; Z79.899 Other long term (current) drug therapy; Z79.01 Long term (current) use of anticoagulants
CPT/HCPCS: 36415; 64635; 64636; 72100; 77002; 82962; 85610; 99100; J1030; J2001; J2704

== ENCOUNTER 2020-06-12 15:25 | Emergency (ER) | payer MEDICARE ==
--- NOTE | 2020-06-12 15:55 | ERPHSYRPT ---
- History of Present Illness Time Seen by Provider: 06/12/20 15:40 Historian: patient Exam Limitations: no limitations Patient Subjective Stated Complaint: Pt states that his abdomen below his umbilicus has been hurting for several days and he was having bright red blood i n his stool for a couple of days and the last being last night, hx of diverticulitis Triage Nursing Assessment: Pt was brought to the ER by his step daughter, hypertensive, rates pain at this time as 4/10, abdomen is distended, bowel sounds heard in all 4 quadrants, skin n/w/d Physician History: Patient is a 75-year-old male presents to our ED with complaints of lower abdominal periumbilical pain. Symptoms started 3 days ago. Patient states his abdomen feels distended. Patient had bloody bowel movement yesterday. No travel. Patient has a history of diverticulitis. Patient states his symptoms are the same. No trauma. No fever. No nausea or vomiting. Patient declined pain medication. Symptoms are mild to moderate in intensity. Palpation to the lower abdomen reproduces symptoms. Patient voices no other complaints or concerns at this time. No associated chest pain or shortness of breath. Timing/Duration: day(s) (Ago.) Activities at Onset: none Quality: aching Abdominal Pain Onset Location: LUQ, RLQ, periumbilical Pain Radiation: no radiation Severity of Pain-Max: moderate Severity of Pain-Current: mild Modifying Factors: Improves With: palpation Associated Symptoms: No chest pain, No diaphoresis, No diarrhea, No fever/chills, No fatigue, No headache, No heartburn, No loss of appetite, No nausea, No neck pain, No rash, No shortness of breath, No syncope, No testicular pain, No vomiting Previous symptoms: same symptoms as today Allergies/Adverse Reactions: No Known Drug Allergies Allergy (Verified 06/12/20 15:49) Home Medications: Amlodipine Besylate 10 mg PO DAILY 01/21/17 [History] Aspirin 81 mg PO DAILY 01/21/17 [History] Budesonide/Formoterol Fumarate [Symbicort 160-4.5 Mcg Inhaler] 10.2 gm IH DAILY 01/21/17 [History] Docusate Sodium [Stool Softener] 200 mg PO BID 01/21/17 [History] Fenofibrate,Micronized [Fenofibrate] 200 mg PO DAILY 01/21/17 [History] Ferrous Sulfate 325 mg [Feosol 325 mg] 325 mg PO DAILY 01/21/17 [History] Finasteride 5 mg [Proscar 5 MG] 5 mg PO DAILY 01/21/17 [History] Folic Acid 1 mg PO DAILY 01/21/17 [History] Furosemide 40 mg [Lasix 40 MG] 40 mg PO DAILY 01/21/17 [History] Glucosamine/D3/Boswellia Meagan [Osteo Bi-Flex Tablet] 1 each PO DAILY 01/21/17 [History] Insulin Glargine [Lantus Insulin] 30 unit SQ DAILY 01/21/17 [History] Insulin Lispro [Humalog Kwikpen] 20 unit SQ BID 01/21/17 [History] Isosorbide Mononitrate 60 mg [Imdur 60MG] 30 mg PO DAILY 01/21/17 [History] Losartan Potassium 100 mg PO DAILY 01/21/17 [History] Magnesium 250 mg PO BID 01/21/17 [History] Meloxicam 15 mg [Meloxicam 15 MG] 15 mg PO DAILY 01/21/17 [History] Probenecid 500 mg PO BID 01/21/17 [History] Psyllium Husk/Aspartame [Metamucil] 425 gm PO DAILY 01/21/17 [History] Ranolazine [Ranexa] 1,000 mg PO BID 01/21/17 [History] Rosuvastatin Calcium [Crestor] 40 mg PO DAILY 01/21/17 [History] Saxagliptin HCl/Metformin HCl [Kombiglyze Xr 2.5-1,000 mg Tab] 2 each PO DAILY 01/21/17 [History] Tamsulosin HCl 0.4 mg [Flomax 0.4 MG] 0.4 mg PO DAILY 01/21/17 [History] carvediloL [Carvedilol] 25 mg PO BID 01/21/17 [History] Hx Tetanus, Diphtheria Vaccination/Date Given: No Hx Influenza Vaccination/Date Given: Yes Hx Pneumococcal Vaccination/Date Given: Yes Travel Risk - International Travel Have you traveled outside of the country in past 3 weeks: No - Coronavirus Screening Are you exhibiting any of the following symptoms?: No Close contact with a COVID-19 positive Pt in past 14-21 Days: No - Review of Systems Constitutional: No Symptoms, No Fever, No Chills Eyes: No Symptoms Ears, Nose, & Throat: No Symptoms Respiratory: No Symptoms, No Cough, No Dyspnea Cardiac: No Symptoms, No Chest Pain, No Edema, No Syncope Abdominal/Gastrointestinal: No Symptoms, No Abdominal Pain, No Nausea, No Vomiting, No Diarrhea Genitourinary Symptoms: No Symptoms, No Dysuria Musculoskeletal: No Symptoms, No Back Pain, No Neck Pain Skin: No Symptoms, No Rash Neurological: No Symptoms, No Dizziness, No Focal Weakness, No Sensory Changes Psychological: No Symptoms Endocrine: No Symptoms Hematologic/Lymphatic: No Symptoms Immunological/Allergic: No Symptoms All Other Systems: Reviewed and Negative - Past Medical History Pertinent Past Medical History: Yes Neurological History: No Pertinent History Cardiac History: Coronary Artery Disease, High Cholesterol, Hypertension, 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 PATIENT ALSO REPORTS RECENT HX OF BLISTER RIGHT MEDIAL ANKLE TREATED AT [facility] - STILL SMALL OPENING WHICH WEEPS. WEARS CIRCAID ON RIGHT LOWER LEG. SX HX: RIGHT TKR 8 YEARS AGO, LEFT TKR 10 YEARS, CHOLECYSTECTOMY, INGUINAL HERNIA REPAIR, BILATERAL ROTATOR CUFF REPAIR (BEFORE TOTAL KNEES WERE DONE) - Past Surgical History Past Surgical History: Yes Cardiac: Cardiac Catheterization Gastrointestinal: Cholecystectomy, Hernia Repair Musculoskeletal: Joint Replacement, Orthopedic Surgery Other Surgical History: knee replaced bilat. bilat surgery on shoulder - Social History Smoking Status: Former smoker Exposure to second hand smoke: No Drug Use: none Patient Lives Alone: No - Nursing Vital Signs Nursing Vital Signs: Initial Vital Signs Temperature 99.0 F 06/12/20 15:34 Pulse Rate 61 06/12/20 15:34 Blood Pressure 185/91 06/12/20 15:34 O2 Sat by Pulse Oximetry 95 06/12/20 15:34 Pain Scale Pain Intensity 9 - Physical Exam General Appearance: no apparent distress, alert Eye Exam: PERRL/EOMI, eyes nml inspection Ears, Nose, Throat Exam: normal ENT inspection, pharynx normal, moist mucous membranes Neck Exam: normal inspection, non-tender, supple, full range of motion Respiratory Exam: normal breath sounds, lungs clear, No respiratory distress Cardiovascular Exam: regular rate/rhythm, normal heart sounds Gastrointestinal/Abdomen Exam: tenderness, distention, No mass, No guarding, No pulsatile mass (Periumbilical lower abdominal tenderness. Abdomen is distended. However it is not rigid. ) Back Exam: normal inspection, normal range of motion, No CVA tenderness, No vertebral tenderness Extremity Exam: normal inspection, normal range of motion, pelvis stable Neurologic Exam: alert, oriented x 3, cooperative, normal mood/affect, nml cerebellar function, sensation nml, No motor deficits Skin Exam: normal color, warm, dry Lymphatic Exam: No adenopathy SpO2 Interpretation: normal SpO2: 95 O2 Delivery: Room Air - Course Nursing assessment & vital signs reviewed: Yes - CT Exams Abdomen/Pelvis CT Interpretation: Tele-radiologist Report (CT abdomen pelvis reveals left lower lobe airspace disease, cardiomegaly, diverticulosis, hepatosplenomegaly, renal cyst vascular calcifications and fatty right inguinal hernia.) Ordered Tests: Active Orders 24 hr Category Date Time Status IV Insertion STAT Care 06/12/20 15:49 Active ABDOMEN AND PELVIS W CONTRAST [CT] Stat Exams 06/12/20 15:50 Completed CBC W DIFF Stat Lab 06/12/20 16:10 Completed CMP Stat Lab 06/12/20 16:10 Completed LIPASE Stat Lab 06/12/20 16:10 Completed TROPONIN Q3H Lab 06/12/20 16:10 Completed TROPONIN Q3H Lab 06/12/20 19:00 Ordered TROPONIN Q3H Lab 06/12/20 22:00 Ordered TROPONIN Q3H Lab 06/13/20 01:00 Ordered TROPONIN Q3H Lab 06/13/20 04:00 Ordered UA W/RFX UR CULTURE Stat Lab 06/12/20 17:00 Completed Medication Summary Generic Name Dose Route Start Last Admin Trade Name Freq PRN Reason Stop Dose Admin Sodium Chloride 1,000 mls @ 100 mls/hr 06/12/20 16:00 06/12/20 16:45 Sodium Chloride 0.9% 1000 Ml IV 07/12/20 15:59 100 mls/hr .Q10H SEGUNDO Administration Discontinued Medications Generic Name Dose Route Start Last Admin Trade Name Freq PRN Reason Stop Dose Admin Morphine Sulfate 2 mg 06/12/20 16:48 06/12/20 17:16 Morphine Sulfate 2 Mg Inj IV 06/12/20 16:49 2 mg STAT ONE Administration Morphine Sulfate Confirm 06/12/20 17:11 Morphine Sulfate 2 Mg Inj Administered 06/12/20 17:12 Dose 2 mg .ROUTE .STK-MED ONE Lab/Rad Data: Laboratory Result Diagrams 06/12/20 16:10 06/12/20 16:10 Laboratory Results 06/12/20 06/12/20 06/12/20 Range/Units 17:00 16:10 16:10 WBC (4.0-10.5) K/mm3 RBC (4.1-5.6) M/mm3 Hgb (12.5-18.0) gm/dl Hct (42-50) % MCV (78-100) fl MCH (26-32) pg MCHC (32-36) g/dl RDW (11.5-14.0) % Plt Count (150-450) K/mm3 MPV (7.5-11.0) fl Gran % (36.0-66.0) % Eos # (Auto) (0-0.5) Absolute Lymphs (auto) (1.0-4.6) Absolute Monos (auto) (0.0-1.3) Lymphocytes % (24.0-44.0) % Monocytes % (0.0-12.0) % Eosinophils % (0.00-5.0) % Basophils % (0.0-0.4) % Absolute Granulocytes (1.4-6.9) Basophils # (0-0.4) Sodium 139 (137-145) mmol/L Potassium 4.3 (3.5-5.1) mmol/L Chloride 102 (98-107) mmol/L Carbon Dioxide 31 H (22-30) mmol/L Anion Gap 10.3 (5-15) MEQ/L BUN 25 H (9-20) mg/dL Creatinine 1.29 H (0.66-1.25) mg/dL Estimated GFR 57.7 ML/MIN Glucose 137 H (74-106) mg/dL Calcium 9.2 (8.4-10.2) mg/dL Total Bilirubin 0.60 (0.2-1.3) mg/dL AST 58 (17-59) U/L ALT 29 (0-50) U/L Alkaline Phosphatase 55 (38-126) U/L Troponin I 0.017 (0.000-0.034) ng/mL Serum Total Protein 7.5 (6.3-8.2) g/dL Albumin 4.0 (3.5-5.0) g/dL Lipase 216 (23-300) U/L Urine Color YELLOW (YELLOW) Urine Appearance CLEAR (CLEAR) Urine pH 7.0 (5-6) Ur Specific [place] 1.021 (1.005-1.025) Urine Protein 100 (Negative) Urine Ketones NEGATIVE (NEGATIVE) Urine Blood NEGATIVE (0-5) [place]/ul Urine Nitrite NEGATIVE (NEGATIVE) Urine Bilirubin NEGATIVE (NEGATIVE) Urine Urobilinogen NEGATIVE (0-1) mg/dL Ur Leukocyte Esterase NEGATIVE (NEGATIVE) Urine WBC (Auto) NONE (0-5) /HPF Urine RBC (Auto) NONE (0-2) /HPF U Epithel Cells (Auto) NONE (FEW) /HPF Urine Bacteria (Auto) NONE (NEGATIVE) /HPF Urine Mucus (Auto) SLIGHT (NEGATIVE) /HPF Urine Culture Reflexed NO (NO) Urine Glucose >=500 (NEGATIVE) mg/dL 06/12/20 Range/Units 16:10 WBC 4.7 (4.0-10.5) K/mm3 RBC 4.22 (4.1-5.6) M/mm3 Hgb 13.2 (12.5-18.0) gm/dl Hct 41.9 L (42-50) % MCV 99.3 (78-100) fl MCH 31.3 (26-32) pg MCHC 31.5 L (32-36) g/dl RDW 15.0 H (11.5-14.0) % Plt Count 135 L (150-450) K/mm3 MPV 11.2 H (7.5-11.0) fl Gran % 54.1 (36.0-66.0) % Eos # (Auto) 0.08 (0-0.5) Absolute Lymphs (auto) 1.28 (1.0-4.6) Absolute Monos (auto) 0.77 (0.0-1.3) Lymphocytes % 27.2 (24.0-44.0) % Monocytes % 16.4 H (0.0-12.0) % Eosinophils % 1.7 (0.00-5.0) % Basophils % 0.6 (0.0-0.4) % Absolute Granulocytes 2.54 (1.4-6.9) Basophils # 0.03 (0-0.4) Sodium (137-145) mmol/L Potassium (3.5-5.1) mmol/L Chloride (98-107) mmol/L Carbon Dioxide (22-30) mmol/L Anion Gap (5-15) MEQ/L BUN (9-20) mg/dL Creatinine (0.66-1.25) mg/dL Estimated GFR ML/MIN Glucose (74-106) mg/dL Calcium (8.4-10.2) mg/dL Total Bilirubin (0.2-1.3) mg/dL AST (17-59) U/L ALT (0-50) U/L Alkaline Phosphatase (38-126) U/L Troponin I (0.000-0.034) ng/mL Serum Total Protein (6.3-8.2) g/dL Albumin (3.5-5.0) g/dL Lipase (23-300) U/L Urine Color (YELLOW) Urine Appearance (CLEAR) Urine pH (5-6) Ur Specific [place] (1.005-1.025) Urine Protein (Negative) Urine Ketones (NEGATIVE) Urine Blood (0-5) Titus/ul Urine Nitrite (NEGATIVE) Urine Bilirubin (NEGATIVE) Urine Urobilinogen (0-1) mg/dL Ur Leukocyte Esterase (NEGATIVE) Urine WBC (Auto) (0-5) /HPF Urine RBC (Auto) (0-2) /HPF U Epithel Cells (Auto) (FEW) /HPF Urine Bacteria (Auto) (NEGATIVE) /HPF Urine Mucus (Auto) (NEGATIVE) /HPF Urine Culture Reflexed (NO) Urine Glucose (NEGATIVE) mg/dL - Progress Progress: improved Progress Note: 06/12/20 17:46 Patient reassessed. Pain improved. Patient states is ready for discharge. In light of his essentially negative CAT scan and rectal bleeding a bloated abdomen we advised admission/transfer for GI. Patient declined. Patient states he is got a GI doctor in [place]. He will call his publications editor in the morning. Patient voices no other complaints or concerns at this time. Will discharge per patient's request. Patient states his last bloody bowel movement was yesterday. He has had no bloody bowel movements today. No blood observed on rectal examination. No chest pain or shortness of breath. 06/12/20 17:47 06/12/20 17:48 Counseled pt/family regarding: lab results, diagnosis, need for follow-up, rad results - Departure Departure Disposition: Home Clinical Impression: Abdominal pain, Cardiomegaly, Diverticulosis, Hepatosplenomegaly, Renal cyst, Vascular calcification, Inguinal hernia Condition: Stable Critical Care Time: No Referrals: TAYLA MALAGON MD [Primary Care Provider] - Additional Instructions: Discharge/Care Plan ALBARO HEIN was seen on 06/12/20 in the Emergency Room. The patient was counseled regarding Diagnosis,Lab results, Imaging studies, need for follow up and when to return to the Emergency Room. Prescriptions given: Discharge Note I have spoken with the patient and/or caregivers. I have explained the patient's condition, diagnosis and treatment plan based on the information available to me at this time. I have answered the patient's and/or caregiver's questions and addressed any concerns. The patient and/or caregivers have as good understanding of the patient's diagnosis, condition and treatment plan as can be expected at this point. The vital signs have been stable. The patient's condition is stable and appropriate for discharge from the emergency department. The patient will pursue further outpatient evaluation with the primary care physician or other designated or consulting physician as outlined in the discharge instructions. The patient and/or caregivers are agreeable to this plan of care and follow-up instructions have been explained in detail. The patient and/or caregivers have received these instruction. The patient/and or caregivers are aware that any significant change in condition or worsening of symptoms should prompt an immediate return to this or the closest emergency department or call 911.
[2020-06-12] MEDS ORDERED: Sodium Chloride 0.9% 1000 ML 1,000 ML IV SCH (16:00)
[2020-06-12 16:16] LABS: Absolute Neutrophil Ct (ANC) 2.54 (1.4-6.9); BASOPHIL % 0.6 % (0.0-0.4); Basophil (Absolute #) 0.03 (0-0.4); Eosinophil % 1.7 % (0.00-5.0); Eosinophil (Absolute #) 0.08 (0-0.5); Hematocrit 41.9 % (42-50); Hemoglobin 13.2 gm/dl (12.5-18.0); Lymphocyte (Absolute #) 1.28 (1.0-4.6); Lymphocytes % 27.2 % (24.0-44.0); Mean Cell Volume 99.3 fl (78-100); Mean Corpuscular Hemoglobin 31.3 pg (26-32); Mean Corpuscular Hgb Concent. 31.5 g/dl (32-36); Mean Platelet Volume 11.2 fl (7.5-11.0); Monocyte (Absolute #) 0.77 (0.0-1.3); Monocytes % 16.4 % (0.0-12.0); Neutrophil % 54.1 % (36.0-66.0); Platelet Count 135 K/mm3 (150-450); Red Blood Count 4.22 M/mm3 (4.1-5.6); White Blood Count 4.7 K/mm3 (4.0-10.5)
[2020-06-12 16:31] LABS: ANION GAP 10.3 MEQ/L (5-15); BILIRUBIN,TOTAL 0.6 mg/dL (0.2-1.3); Calcium 9.2 mg/dL (8.4-10.2); Creatinine 1 1.29 mg/dL (0.66-1.25); EST GLOMERULAR FILTRATION RATE 57.7 ML/MIN; Potassium 4.3 mmol/L (3.5-5.1); Total Protein 7.5 g/dL (6.3-8.2)
[2020-06-12] MEDS ORDERED: Sodium Chloride 0.9% 1000 ML 1,000 ML ONE (16:39)
[2020-06-12] MEDS ORDERED: MORPHINE SULFATE 2 MG INJ IV ONE (16:48)
--- NOTE | 2020-06-12 17:04 | XRAY ---
Indication: Abdomen pain, bloating, and blood in stool. History of diverticulitis. Multiple contiguous axial images obtained through the abdomen and pelvis using 80 cc Isovue 370 contrast only. Comparison: July 29, 2019. Lung bases again demonstrates minimal bibasilar dependent atelectasis. New patchy left lower lobe airspace disease without effusion. Heart remains enlarged. Noncontrasted stomach and bowel loops remain nonobstructed again with diffuse scattered colonic diverticulosis greatest in the sigmoid colon. Normal appendix. Stable tiny perihepatic fluid, hepatosplenomegaly, cholecystectomy, and small left renal cyst. No walled off fluid collection or free air. Remaining liver, pancreas, spleen, adrenal glands, kidneys, ureters, and bladder appear unremarkable. Stable heavy scattered vascular calcifications and 2.8 cm distal aortic ectasia. No pathologic retroperitoneal lymphadenopathy. Osseous structures intact again with moderate/advanced degenerative changes throughout the spine and bilateral L5 spondylolysis without spondylolisthesis. Stable small fatty right inguinal hernia. Impression: 1. Stable diffuse colonic diverticulosis without diverticulitis. 2. Stable hepatosplenomegaly with tiny perihepatic fluid. 3. Stable cardiomegaly, left renal cyst, fatty right inguinal hernia, diffuse arteriosclerotic disease, and chronic bony findings. 4. New patchy left lower lobe airspace disease.
[2020-06-12] MEDS ORDERED: MORPHINE SULFATE 2 MG INJ ONE (17:11)
[2020-06-12 17:13] LABS: Appearance CLEAR (CLEAR); Bilirubin NEGATIVE (NEGATIVE); Blood NEGATIVE Ery/ul (0-5); Glucose >=500 mg/dL (NEGATIVE); Ketones NEGATIVE (NEGATIVE); Leukocyte Esterase NEGATIVE (NEGATIVE); Mucus SLIGHT /HPF (NEGATIVE); Nitrite NEGATIVE (NEGATIVE); Protein,Urine Dip 100 (Negative); Specific Gravity 1.021 (1.005-1.025); Urobilinogen NEGATIVE mg/dL (0-1)
[2020-06-12 18:10] VITALS: BP 149/70; PULSE 78; O2SAT 98
== END 2020-06-12 18:11 | disposition home or self-care (01) ==
LOC: ED 15:25
DX: R10.9 Unspecified abdominal pain (principal); I51.7 Cardiomegaly; K57.90 Diverticulosis of intestine, part unspecified, without perforation or abscess without bleeding; N28.1 Cyst of kidney, acquired; M61.3 Calcification and ossification of muscles associated with burns; K40.90 Unilateral inguinal hernia, without obstruction or gangrene, not specified as recurrent; I25.10 Atherosclerotic heart disease of native coronary artery without angina pectoris; Z79.899 Other long term (current) drug therapy; I10 Essential (primary) hypertension; E78.00 Pure hypercholesterolemia, unspecified; I25.2 Old myocardial infarction; E11.9 Type 2 diabetes mellitus without complications; M19.90 Unspecified osteoarthritis, unspecified site
CPT/HCPCS: 36000; 36415; 74177; 80053; 81001; 83690; 84484; 85025; 96360; 96361; 96374; 99284; J2270

== ENCOUNTER 2020-08-16 09:32 | Day surgery (SDC) | payer MEDICARE ==
[2020-08-16] MEDS ORDERED: BUPIVACAINE 0.5% VIAL IJ ONE (09:33)
[2020-08-16] MEDS ORDERED: Depo-Medrol 40 MG/ML IM ONE (09:33)
[2020-08-16] MEDS ORDERED: DIPRIVAN 200 MG/20 ML IV ONE (11:10)
[2020-08-16] MEDS ORDERED: Ketamine HCl 50 MG/ML ONE (11:10)
--- NOTE | 2020-08-16 12:54 | XRAY ---
Indication: Bilateral SI joint injection. Intraoperative fluoroscopy was provided for 19 seconds. 4 digital spot images submitted for interpretation demonstrates posterior needle tip projecting over the inferior left and right SI joint. Correlate with intraoperative findings/report.
[2020-08-16] MEDS ORDERED: Lactated Ringers 1,000 ML IV ONE (14:04)
--- NOTE | 2020-08-16 14:21 | XRAY ---
19 seconds fluoroscopy time in surgery for bilateral SI joint injections.
== END 2020-08-16 11:41 | disposition home or self-care (01) ==
LOC: SDC-PAIN 09:32
PROVIDERS: ATTEND Psychiatry & Neurology Pain Medicine
DX: M46.1 Sacroiliitis, not elsewhere classified (principal); I10 Essential (primary) hypertension; E11.9 Type 2 diabetes mellitus without complications; J44.9 Chronic obstructive pulmonary disease, unspecified; K21.9 Gastro-esophageal reflux disease without esophagitis; K74.60 Unspecified cirrhosis of liver; I25.10 Atherosclerotic heart disease of native coronary artery without angina pectoris; Z79.01 Long term (current) use of anticoagulants
CPT/HCPCS: 27096; 36415; 72202; 77002; 82947; 85610; G0260; 99100; J1030; J2704